=== PATIENT | male | born 1960 | race Caucasian/White ===

== ENCOUNTER 2018-10-08 15:32 | Emergency (ER) | payer OTHER ==
[~2018-10-08] VITALS: Ht 180.3 cm; Wt 86.2 kg
[2018-10-08 16:14] LABS: BASOPHILS ABSOLUTE AUTO 0.14 K/mm3 (0.00-0.23); BASOPHILS PERCENT AUTO 3 % (0-2); EOSINOPHILS ABSOLUTE AUTO 0.14 K/mm3 (0.00-0.68); EOSINOPHILS PERCENT AUTO 3 % (0-6); Hematocrit 42.1 % (37.0-53.0); Hemoglobin 13.9 g/dL (13.5-17.5); IMMATURE GRAN ABSOLUTE AUTO 0.02 K/mm3 (0.00-0.10); IMMATURE GRAN PERCENT AUTO 0 % (0-1); LYMPHOCYTES ABSOLUTE AUTO 1.28 K/mm3 (0.84-5.20); LYMPHOCYTES PERCENT AUTO 27 % (21-46); MONOCYTES ABSOLUTE AUTO 0.69 K/mm3 (0.16-1.47); MONOCYTES PERCENT AUTO 14 % (4-13); Mean Corpuscular HGB 32.9 pg (26.0-34.0); Mean Corpuscular Volume 100 fL (80-100); Mean Platelet Volume 9.1 fL (9.1-12.4); NEUTROPHILS ABSOLUTE AUTO 2.53 K/mm3 (1.96-9.15); NEUTROPHILS PERCENT AUTO 53 % (41-73); Platelet Count 146 K/mm3 (150-400); RDW Coefficient Variation 15.4 % (11.7-14.2); RDW Standard Deviation 56.8 fL (35.1-46.3); Red Blood Cell Count 4.22 M/mm3 (4.30-5.90)
[2018-10-08 16:35] LABS: Troponin I <0.015 ng/mL (0.000-0.040)
[2018-10-08 16:38] LABS: Alanine Aminotransfer (ALT/SGP 19 U/L (12-78); Albumin, Blood 3.6 g/dL (3.4-5.0); Albumin/Globulin Ratio 1.1 (0.8-1.8); Alk Phos 105 U/L (50-136); Anion Gap 10 mmol/L (6-16); Aspartate Aminotrans (AST/SGOT 56 U/L (12-37); Bilirubin, Total 0.8 mg/dL (0.1-1.0); Blood Urea Nitrogen 9 mg/dL (8-24); Bun/Creatinine Ratio 14.1 (12.0-20.0); CO2, Blood 25 mmol/L (21-32); Calcium, Blood 7.9 mg/dL (8.5-10.1); Chloride, Blood 109 mmol/L (98-108); Creatinine, Blood 0.64 mg/dL (0.60-1.20); Globulin, Blood 3.3 g/dL (2.2-4.0); Glomerular Filtration Rate >60 (60-); Glucose, Blood 99 mg/dL (70-99); Potassium, Blood 3.8 mmol/L (3.5-5.5); Sodium, Blood 144 mmol/L (136-145); Total Protein, Blood 6.9 g/dL (6.4-8.2)
[2018-10-08 16:40] LABS: Ethanol (Alcohol), Blood, Med 476 mg/dL
== END 2018-10-08 18:28 | disposition home or self-care (01) ==
LOC: ER 15:32
PROVIDERS: Emergency Medicine
DX: S01.01XA Laceration without foreign body of scalp, initial encounter (principal); F10.129 Alcohol abuse with intoxication, unspecified; Y90.8 Blood alcohol level of 240 mg/100 ml or more; Z23 Encounter for immunization; M79.604 Pain in right leg; G89.29 Other chronic pain; W18.30XA Fall on same level, unspecified, initial encounter; F17.200 Nicotine dependence, unspecified, uncomplicated
CPT/HCPCS: 12002; 36415; 70450; 71046; 72100; 73502; 73560-RT; 80053; 83880; 84484; 85025; 93005; 93010; 99284-25; G0480

== ENCOUNTER 2021-01-09 18:13 | Emergency (ER) | payer OTHER ==
[~2021-01-09] VITALS: Ht 182.9 cm; Wt 88.5 kg
== END 2021-01-09 19:35 | disposition home or self-care (01) ==
LOC: ER 18:13
DX: S60.511A Abrasion of right hand, initial encounter (principal); F10.129 Alcohol abuse with intoxication, unspecified; X50.1XXA Overexertion from prolonged static or awkward postures, initial encounter
CPT/HCPCS: 99283

== ENCOUNTER → 2021-02-09 | Outpatient (CLI) | payer OTHER | LOC: LAB EV 17:14 → LAB SHORT 17:14 | DX: L03.119 Cellulitis of unspecified part of limb (principal) | CPT/HCPCS: 87070; 87205 ==

== ENCOUNTER 2021-02-21 16:14 | Observation (INO) | payer OTHER ==
[~2021-02-21] VITALS: Ht 182.9 cm; Wt 103.9 kg
[2021-02-21 16:47] LABS: BASOPHILS ABSOLUTE AUTO 0.01 K/mm3 (0.00-0.23); BASOPHILS PERCENT AUTO 0 % (0-2); EOSINOPHILS ABSOLUTE AUTO 0.19 K/mm3 (0.00-0.68); EOSINOPHILS PERCENT AUTO 8 % (0-6); Hematocrit 44.3 % (37.0-53.0); Hemoglobin 15.3 g/dL (13.5-17.5); IMMATURE GRAN ABSOLUTE AUTO 0.01 K/mm3 (0.00-0.10); IMMATURE GRAN PERCENT AUTO 0 % (0-1); LYMPHOCYTES ABSOLUTE AUTO 0.61 K/mm3 (0.84-5.20); LYMPHOCYTES PERCENT AUTO 25 % (21-46); MONOCYTES PERCENT AUTO 12 % (4-13); Mean Corpuscular HGB 32.6 pg (26.0-34.0); Mean Corpuscular HGB Conc 34.5 g/dL (31.5-36.5); Mean Corpuscular Volume 95 fL (80-100); Mean Platelet Volume 9.7 fL (9.1-12.4); NEUTROPHILS ABSOLUTE AUTO 1.36 K/mm3 (1.96-9.15); NEUTROPHILS PERCENT AUTO 55 % (41-73); Platelet Count 57 K/mm3 (150-400); RDW Coefficient Variation 14.6 % (11.7-14.2); Red Blood Cell Count 4.69 M/mm3 (4.30-5.90); White Blood Cell Count 2.48 K/mm3 (4.00-11.30)
[2021-02-21 17:03] LABS: Alanine Aminotransfer (ALT/SGP 25 U/L (12-78); Albumin, Blood 3.4 g/dL (3.4-5.0); Albumin/Globulin Ratio 0.8 (0.8-1.8); Alk Phos 112 U/L (50-136); Anion Gap 9 mmol/L (6-16); Aspartate Aminotrans (AST/SGOT 68 U/L (12-37); Bilirubin, Total 0.4 mg/dL (0.1-1.0); Blood Urea Nitrogen 5 mg/dL (8-24); Bun/Creatinine Ratio 5.7 (12.0-20.0); CO2, Blood 23 mmol/L (21-32); Calcium, Blood 8.2 mg/dL (8.5-10.1); Chloride, Blood 107 mmol/L (98-108); Creatinine, Blood 0.88 mg/dL (0.60-1.20); Glomerular Filtration Rate >60 (60-); Glucose, Blood 132 mg/dL (70-99); Potassium, Blood 4.2 mmol/L (3.5-5.5); Sodium, Blood 139 mmol/L (136-145); Total Protein, Blood 7.4 g/dL (6.4-8.2)
[2021-02-21 17:06] LABS: Ethanol (Alcohol), Blood, Med 453 mg/dL
[2021-02-21 17:44] LABS: SARS-Cov-2 (COVID-19) PCR, MMC NEGATIVE (NEGATIVE)
[2021-02-21 18:31] LABS: Source, Urine Clean Catch
[2021-02-21 18:35] LABS: Appearance, Urine Clear (Clear); Bilirubin, Urine Neg (Neg); Blood, Urine 1+ (Neg); Color, Urine Yellow (P-Yellow); Glucose Qualitative, Urine Neg (Neg); Ketones, Urine Neg (Neg); Leukocyte Esterase, Urine Neg (Neg); Nitrite, Urine Neg (Neg); Protein, Urine 2+ (Neg); Specific Gravity, Urine 1.015 (1.003-1.022); Urobilinogen, Urine NORM (Normal)
[2021-02-21 18:50] LABS: U Amphetamine Screen Not Detected; U Barbituate Screen Not Detected; U Benzodiazapine Screen Not Detected; U Buprenorphine Screen Not Detected; U Cannabinoids Screen Not Detected; U Cocaine Screen Not Detected; U Methadone Screen Not Detected; U Methamphetamine Screen Not Detected; U Opiates Screen Not Detected; U Oxycodone Screen Not Detected; U Phencyclidine Screen Not Detected; U Propoxyphene Screen Not Detected
[2021-02-21 19:00] LABS: Bacteria Rare /hpf; Red Blood Cells, Urine Rare /hpf (0-2); Squamous Epithelial Cells Rare /hpf (Few); White Blood Cells, Urine Not Seen /hpf (0-5)
== END 2021-02-21 19:59 | disposition home or self-care (01) ==
LOC: ER 16:14 → EOR 16:15
PROVIDERS: Emergency Medicine; ADMIT Emergency Medicine
DX: F10.121 Alcohol abuse with intoxication delirium (principal); F32.9 Major depressive disorder, single episode, unspecified; Z20.822 Contact with and (suspected) exposure to COVID-19; Y90.8 Blood alcohol level of 240 mg/100 ml or more; Z87.820 Personal history of traumatic brain injury
CPT/HCPCS: 36415; 80053; 81001; 85025; 93005; 93010; 99285-25; G0378; G0480; U0004

== ENCOUNTER 2021-03-14 19:24 | Emergency (ER) | payer OTHER ==
[~2021-03-14] VITALS: Ht 182.9 cm; Wt 104.3 kg
== END 2021-03-14 20:10 | disposition home or self-care (01) ==
LOC: ER 19:24
DX: Z53.21 Procedure and treatment not carried out due to patient leaving prior to being seen by health care provider (principal)

== ENCOUNTER 2022-03-23 14:53 | Emergency (ER) | payer OTHER ==
[~2022-03-23] VITALS: Ht 180.3 cm; Wt 95.2 kg
[2022-03-23 15:20] LABS: BASOPHILS ABSOLUTE AUTO 0.05 K/mm3 (0.00-0.23); BASOPHILS PERCENT AUTO 1 % (0-2); EOSINOPHILS ABSOLUTE AUTO 0.07 K/mm3 (0.00-0.68); EOSINOPHILS PERCENT AUTO 1 % (0-6); Hematocrit 36.3 % (37.0-53.0); Hemoglobin 12.1 g/dL (13.5-17.5); IMMATURE GRAN ABSOLUTE AUTO 0.03 K/mm3 (0.00-0.10); IMMATURE GRAN PERCENT AUTO 1 % (0-1); LYMPHOCYTES ABSOLUTE AUTO 1.11 K/mm3 (0.84-5.20); LYMPHOCYTES PERCENT AUTO 17 % (21-46); MONOCYTES PERCENT AUTO 12 % (4-13); Mean Corpuscular HGB 33.5 pg (26.0-34.0); Mean Corpuscular HGB Conc 33.3 g/dL (31.5-36.5); Mean Corpuscular Volume 101 fL (80-100); Mean Platelet Volume 9.7 fL (9.1-12.4); NEUTROPHILS ABSOLUTE AUTO 4.59 K/mm3 (1.96-9.15); NEUTROPHILS PERCENT AUTO 69 % (41-73); Platelet Count 245 K/mm3 (150-400); RDW Coefficient Variation 12.9 % (11.7-14.2); RDW Standard Deviation 47.8 fL (35.1-46.3); Red Blood Cell Count 3.61 M/mm3 (4.30-5.90); White Blood Cell Count 6.65 K/mm3 (4.00-11.30)
[2022-03-23 15:40] LABS: Albumin, Blood 2.7 g/dL (3.4-5.0); Albumin/Globulin Ratio 0.8 (0.8-1.8); Bilirubin, Total 0.7 mg/dL (0.1-1.0); Bun/Creatinine Ratio 18.8 (12.0-20.0); Calcium, Blood 7.8 mg/dL (8.5-10.1); Creatinine, Blood 0.53 mg/dL (0.60-1.20); Globulin, Blood 3.2 g/dL (2.2-4.0); Potassium, Blood 3.1 mmol/L (3.5-5.5); Total Protein, Blood 5.9 g/dL (6.4-8.2)
[2022-03-23 16:47] LABS: U Amphetamine Screen Not Detected; U Barbituate Screen Not Detected; U Benzodiazapine Screen Not Detected; U Buprenorphine Screen Not Detected; U Cannabinoids Screen Not Detected; U Cocaine Screen Not Detected; U Methadone Screen Not Detected; U Methamphetamine Screen Not Detected; U Opiates Screen Not Detected; U Oxycodone Screen Not Detected; U Phencyclidine Screen Not Detected; U Propoxyphene Screen Not Detected
== END 2022-03-23 18:24 | disposition home or self-care (01) ==
LOC: ER 14:53
PROVIDERS: Emergency Medicine
DX: R41.0 Disorientation, unspecified (principal); F10.129 Alcohol abuse with intoxication, unspecified; F17.210 Nicotine dependence, cigarettes, uncomplicated; Y90.1 Blood alcohol level of 20-39 mg/100 ml
CPT/HCPCS: 70450; 80053; 82947; 85025; 93005; 93010; 99285-25; G0480

== ENCOUNTER 2023-01-13 14:42 | Emergency (ER) | payer OTHER ==
[~2023-01-13] VITALS: Ht 182.9 cm; Wt 83.9 kg
[2023-01-13 15:20] LABS: BASOPHILS ABSOLUTE AUTO 0.02 K/mm3 (0.00-0.23); BASOPHILS PERCENT AUTO 0 % (0-2); EOSINOPHILS ABSOLUTE AUTO 0.06 K/mm3 (0.00-0.68); EOSINOPHILS PERCENT AUTO 1 % (0-6); Hematocrit 36.6 % (37.0-53.0); Hemoglobin 13.2 g/dL (13.5-17.5); IMMATURE GRAN ABSOLUTE AUTO 0.04 K/mm3 (0.00-0.10); IMMATURE GRAN PERCENT AUTO 1 % (0-1); LYMPHOCYTES ABSOLUTE AUTO 0.62 K/mm3 (0.84-5.20); LYMPHOCYTES PERCENT AUTO 12 % (21-46); MONOCYTES ABSOLUTE AUTO 0.39 K/mm3 (0.16-1.47); MONOCYTES PERCENT AUTO 8 % (4-13); Mean Corpuscular HGB 31.5 pg (26.0-34.0); Mean Corpuscular HGB Conc 36.1 g/dL (31.5-36.5); Mean Corpuscular Volume 87 fL (80-100); Mean Platelet Volume 9.5 fL (9.1-12.4); NEUTROPHILS ABSOLUTE AUTO 3.99 K/mm3 (1.96-9.15); NEUTROPHILS PERCENT AUTO 78 % (41-73); Platelet Count 294 K/mm3 (150-400); RDW Coefficient Variation 13.2 % (11.7-14.2); RDW Standard Deviation 42.3 fL (35.1-46.3); Red Blood Cell Count 4.19 M/mm3 (4.30-5.90); White Blood Cell Count 5.12 K/mm3 (4.00-11.30)
[2023-01-13 15:45] LABS: Albumin, Blood 2.7 g/dL (3.4-5.0); Albumin/Globulin Ratio 0.7 (0.8-1.8); Bilirubin, Total 0.7 mg/dL (0.1-1.0); Bun/Creatinine Ratio 23.4 (12.0-20.0); Calcium, Blood 8.4 mg/dL (8.5-10.1); Creatinine, Blood 0.64 mg/dL (0.60-1.20); Globulin, Blood 3.9 g/dL (2.2-4.0); Potassium, Blood 4.1 mmol/L (3.5-5.5); Total Protein, Blood 6.6 g/dL (6.4-8.2)
[2023-01-13 17:11] VITALS: BP 141/90
== END 2023-01-13 18:59 | disposition home or self-care (01) ==
LOC: ER 14:42
PROVIDERS: Emergency Medicine
DX: M79.89 Other specified soft tissue disorders (principal); E87.1 Hypo-osmolality and hyponatremia; F17.210 Nicotine dependence, cigarettes, uncomplicated; Z87.820 Personal history of traumatic brain injury
CPT/HCPCS: 36415; 71045; 80053; 83880; 85025; 93005; 93010; 99284-25

== ENCOUNTER 2023-01-17 12:33 | Inpatient (IN) | payer OTHER ==
[~2023-01-17] VITALS: Ht 182.9 cm; Wt 90.2 kg
[2023-01-17 13:05] LABS: Calcium, Ionized (POC) 1.06 mmol/L (1.10-1.46); Chloride (POC) 87 mmol/L (98-108); Creatinine (POC) 0.5 mg/dL (0.8-1.3); Glucose (ISTAT POC) 131 mg/dL (70-99); Potassium (POC) 4.5 mmol/L (3.5-5.5); Sodium (POC) 120 mmol/L (135-148); Total CO2 (POC) 22 mmol/L (21-32)
[2023-01-17 13:21] LABS: BASOPHILS ABSOLUTE AUTO 0.03 K/mm3 (0.00-0.23); BASOPHILS PERCENT AUTO 0 % (0-2); EOSINOPHILS PERCENT AUTO 0 % (0-6); Hematocrit 38.2 % (37.0-53.0); Hemoglobin 13.5 g/dL (13.5-17.5); IMMATURE GRAN ABSOLUTE AUTO 0.14 K/mm3 (0.00-0.10); IMMATURE GRAN PERCENT AUTO 1 % (0-1); LYMPHOCYTES PERCENT AUTO 4 % (21-46); MONOCYTES ABSOLUTE AUTO 0.64 K/mm3 (0.16-1.47); MONOCYTES PERCENT AUTO 6 % (4-13); Mean Corpuscular HGB 30.8 pg (26.0-34.0); Mean Corpuscular HGB Conc 35.3 g/dL (31.5-36.5); Mean Corpuscular Volume 87 fL (80-100); Mean Platelet Volume 9.4 fL (9.1-12.4); NEUTROPHILS ABSOLUTE AUTO 10.06 K/mm3 (1.96-9.15); NEUTROPHILS PERCENT AUTO 89 % (41-73); Platelet Count 296 K/mm3 (150-400); RDW Standard Deviation 41.6 fL (35.1-46.3); Red Blood Cell Count 4.38 M/mm3 (4.30-5.90); White Blood Cell Count 11.37 K/mm3 (4.00-11.30)
[2023-01-17 13:36] LABS: Magnesium, Blood 1.7 mg/dL (1.6-2.4)
[2023-01-17 13:57] LABS: Alanine Aminotransfer (ALT/SGP 48 U/L (12-78); Albumin, Blood 2.2 g/dL (3.4-5.0); Albumin/Globulin Ratio 0.5 (0.8-1.8); Alk Phos 82 U/L (50-136); Anion Gap 7 mmol/L (6-16); Aspartate Aminotrans (AST/SGOT 90 U/L (12-37); Bilirubin, Total 1.1 mg/dL (0.1-1.0); Blood Urea Nitrogen 12 mg/dL (8-24); Bun/Creatinine Ratio 20.1 (12.0-20.0); CHOL/HDL RATIO Unable to Calculate; CO2, Blood 22 mmol/L (21-32); Calcium, Blood 8.4 mg/dL (8.5-10.1); Chloride, Blood 90 mmol/L (98-108); Cholesterol <50 mg/dL (50-200); Globulin, Blood 4.2 g/dL (2.2-4.0); Glomerular Filtration Rate 109 (60-); Glucose, Blood 140 mg/dL (70-99); HDL Cholesterol 10 mg/dL (>39); LDL/HDL RATIO Unable to Calculate; Low Density Lipoprotein Chol Unable to Calculate mg/dL (0-110); Potassium, Blood 4.6 mmol/L (3.5-5.5); Sodium, Blood 119 mmol/L (136-145); Total Protein, Blood 6.4 g/dL (6.4-8.2); Triglycerides 74 mg/dL (30-160); Very Low Density Lipoprot Chol 14 mg/dL (6-32)
[2023-01-17 15:23] LABS: Adenovirus Not Detected (NOT DETECT); Bordetella pertussis Not Detected (NOT DETECT); Chlamydophila pneumoniae Not Detected (NOT DETECT); Coronavirus 229E Not Detected (NOT DETECT); Coronavirus HKU1 Not Detected (NOT DETECT); Coronavirus NL63 Not Detected (NOT DETECT); Coronavirus OC43 Not Detected (NOT DETECT); Human Metapneumovirus Not Detected (NOT DETECT); Human Rhinovirus/Enterovirus Not Detected (NOT DETECT); Influenza A/2009-H1 Not Detected (NOT DETECT); Influenza A/H1 Not Detected (NOT DETECT); Influenza A/H3 Not Detected (NOT DETECT); Influenza B Not Detected (NOT DETECT); Mycoplasma pneumoniae Not Detected (NOT DETECT); Parainfluenza Virus 1 Not Detected (NOT DETECT); Parainfluenza Virus 2 Not Detected (NOT DETECT); Parainfluenza Virus 3 Not Detected (NOT DETECT); Parainfluenza Virus 4 Not Detected (NOT DETECT); Respiratory Syncytial Virus Not Detected (NOT DETECT); SARS-Cov-2 (COVID-19), BioFire Not Detected (NOT DETECT)
[2023-01-17 16:45] LABS: Calcium, Blood 8.4 mg/dL (8.5-10.1); Creatinine, Blood 0.59 mg/dL (0.60-1.20); Potassium, Blood 4.4 mmol/L (3.5-5.5)
[2023-01-17 16:56] LABS: Source, Urine Clean Catch
[2023-01-17 17:02] LABS: Appearance, Urine Hazy (Clear); Bilirubin, Urine Neg (Neg); Blood, Urine 1+ (Neg); Color, Urine Yellow (P-Yellow); Glucose Qualitative, Urine Neg (Neg); Ketones, Urine Neg (Neg); Leukocyte Esterase, Urine 2+ (Neg); Nitrite, Urine Neg (Neg); Protein, Urine 1+ (Neg); Specific Gravity, Urine 1.015 (1.003-1.022); Urobilinogen, Urine 1+ (Normal)
[2023-01-17 17:09] LABS: Bacteria Many /hpf; Red Blood Cells, Urine 0-2 /hpf (0-2); Squamous Epithelial Cells Rare /hpf (Few)
[2023-01-17 18:57] VITALS: BP 131/86
[2023-01-17 20:02] LABS: Bun/Creatinine Ratio 24.6 (12.0-20.0); Calcium, Blood 8.5 mg/dL (8.5-10.1); Creatinine, Blood 0.53 mg/dL (0.60-1.20); Potassium, Blood 4.2 mmol/L (3.5-5.5)
[2023-01-17 20:49] VITALS: BP 122/81
[2023-01-18 00:14] VITALS: BP 126/83
[2023-01-18 00:58] LABS: Bun/Creatinine Ratio 26.3 (12.0-20.0); Calcium, Blood 8.4 mg/dL (8.5-10.1); Creatinine, Blood 0.49 mg/dL (0.60-1.20); Potassium, Blood 4.2 mmol/L (3.5-5.5)
[2023-01-18 05:05] VITALS: BP 125/86
[2023-01-18 05:06] LABS: BASOPHILS ABSOLUTE AUTO 0.03 K/mm3 (0.00-0.23); BASOPHILS PERCENT AUTO 0 % (0-2); EOSINOPHILS ABSOLUTE AUTO 0.02 K/mm3 (0.00-0.68); EOSINOPHILS PERCENT AUTO 0 % (0-6); Hematocrit 38.5 % (37.0-53.0); Hemoglobin 13.4 g/dL (13.5-17.5); IMMATURE GRAN ABSOLUTE AUTO 0.14 K/mm3 (0.00-0.10); IMMATURE GRAN PERCENT AUTO 2 % (0-1); LYMPHOCYTES ABSOLUTE AUTO 0.55 K/mm3 (0.84-5.20); LYMPHOCYTES PERCENT AUTO 6 % (21-46); MONOCYTES ABSOLUTE AUTO 0.46 K/mm3 (0.16-1.47); MONOCYTES PERCENT AUTO 5 % (4-13); Mean Corpuscular HGB 30.5 pg (26.0-34.0); Mean Corpuscular HGB Conc 34.8 g/dL (31.5-36.5); Mean Corpuscular Volume 88 fL (80-100); Mean Platelet Volume 8.9 fL (9.1-12.4); NEUTROPHILS ABSOLUTE AUTO 7.43 K/mm3 (1.96-9.15); NEUTROPHILS PERCENT AUTO 86 % (41-73); Platelet Count 305 K/mm3 (150-400); RDW Coefficient Variation 12.8 % (11.7-14.2); RDW Standard Deviation 41.7 fL (35.1-46.3); White Blood Cell Count 8.63 K/mm3 (4.00-11.30)
[2023-01-18 05:43] LABS: Albumin, Blood 2.1 g/dL (3.4-5.0); Albumin/Globulin Ratio 0.6 (0.8-1.8); Bun/Creatinine Ratio 24.1 (12.0-20.0); Calcium, Blood 8.5 mg/dL (8.5-10.1); Creatinine, Blood 0.58 mg/dL (0.60-1.20); Globulin, Blood 3.7 g/dL (2.2-4.0); Potassium, Blood 4.4 mmol/L (3.5-5.5); Total Protein, Blood 5.8 g/dL (6.4-8.2)
--- NOTE | 2023-01-18 06:00 | NUR ---
SHIFT SUMMARY ASSUMED CARE OF PT AT 1900. PT IS A/OX3-4. PT IS FORGETFUL. FOR EXAMPLE, PT CANT REMEMBER WHY HIS CARGIVER IS NOT IN THE ROOM BUT KNOWS THAT HE IS IN THE HOSPITAL. HEART SOUNDS REGULAR. LUNG SOUNDS CORSE AT BASES. PT HAD WET NON PRODUCTIVE COUGH. PT C/O THROAT PAIN, MEDICATED PER EMAR. PT HAD CONDOM CATH T/O THE NOC. PT WOULD FORGET HE HAD IT AND ATTEMPT TO URINATE IN A CUP. PT HAS ARTHRITIC PAIN, MEDICATED PER EMAR. PT DID NOT SLEP WELL DURING THE NOC.
[2023-01-18 08:00] VITALS: BP 121/81
[2023-01-18 12:30] VITALS: BP 121/88
--- NOTE | 2023-01-18 16:00 | NUR ---
ASSUMPTION OF CARE AND TRANSFER OF CARE NOTE THIS RN ASSUMED CARE OF PT AT 0715, REPORT FROM SANDY VANN. PT AWAKE IN ROOM; PT A&O X 2. ORIENTED TO SELF, PERSON, FAMILY. ABLE TO IDENTIFY HE WAS IN [place] BUT UNABLE TO STATE HE WAS IN THE HOSPITAL. PT DIFFICULT TO REORIENT D/T HX OF TBI AND DEMENTIA. PT PLEASANT BUT FORGETFUL OFTEN NEEDING REMINDERS AND REORIENTATION. VSS. PT ON RA, DYSPNEA NOTED W/EXERTION. PT LUNG SOUNDS COURSE AND WHEEZING NOTED. CONDOM CATHETER IN PLACE, DRAINING LILLY URINE. FAMILY IN TO SEE PT. CIWA SCORES RANING 5 - 7. PT COMPLAINING OF PAIN 5/10 "ALL OVER", STATES IS NEW ONSET. MEDICATION PER EMAR. AROUND 1400 PT NOTICEABLY MORE RESTLESS, AGITATED AND A LITTLE MORE CONFUSED THAN EARLIER. THIS RN TRANSFERRED CARE TO VIRA Bowen RN AND RESOURCE TEACHER. REPORT GIVEN. FAMILY AT BEDSIDE.
--- NOTE | 2023-01-18 16:05 | NUR ---
ASSUMED CARE OF PATIENT PATIENT VERY RESTLESS IN CHAIR, CONTINUOUSLY ASKING FOR HIS ELECTRONIC W/C PATIENT PRESUMABLY HAS AT HOME. REMINDED PATIENT HE IS IN HOSPITAL, ATTEMPTED TO REASSURE BUT PATIENT VERY FIXATED ON NEEDING WHEELCHAIR. PLAN TO REASSES CIWA & MEDICATE PER EMAR NEEDED PER CIWA SCALE.
[2023-01-18 16:54] VITALS: BP 119/88
--- NOTE | 2023-01-18 18:30 | NUR ---
NO ACUTE CHANGES SINCE ASSUMPTION OF CARE. PATIENT HAS BEEN RESTING PEACEFULLY IN CHAIR SINCE ATIVAN GIVEN PER EMAR. CALL LIGHT IN REACH.
[2023-01-18 21:25] VITALS: BP 102/73
[2023-01-19 04:42] VITALS: BP 124/88
[2023-01-19 05:14] LABS: BASOPHILS ABSOLUTE AUTO 0.03 K/mm3 (0.00-0.23); BASOPHILS PERCENT AUTO 1 % (0-2); EOSINOPHILS ABSOLUTE AUTO 0.18 K/mm3 (0.00-0.68); EOSINOPHILS PERCENT AUTO 3 % (0-6); Hematocrit 36.3 % (37.0-53.0); IMMATURE GRAN ABSOLUTE AUTO 0.22 K/mm3 (0.00-0.10); IMMATURE GRAN PERCENT AUTO 4 % (0-1); LYMPHOCYTES ABSOLUTE AUTO 0.76 K/mm3 (0.84-5.20); LYMPHOCYTES PERCENT AUTO 14 % (21-46); MONOCYTES ABSOLUTE AUTO 0.37 K/mm3 (0.16-1.47); MONOCYTES PERCENT AUTO 7 % (4-13); Mean Corpuscular HGB 31.5 pg (26.0-34.0); Mean Corpuscular HGB Conc 35.8 g/dL (31.5-36.5); Mean Corpuscular Volume 88 fL (80-100); Mean Platelet Volume 9.2 fL (9.1-12.4); NEUTROPHILS ABSOLUTE AUTO 3.79 K/mm3 (1.96-9.15); NEUTROPHILS PERCENT AUTO 71 % (41-73); Platelet Count 323 K/mm3 (150-400); RDW Coefficient Variation 13.1 % (11.7-14.2); RDW Standard Deviation 41.7 fL (35.1-46.3); Red Blood Cell Count 4.13 M/mm3 (4.30-5.90); White Blood Cell Count 5.35 K/mm3 (4.00-11.30)
[2023-01-19 05:36] LABS: Albumin, Blood 1.9 g/dL (3.4-5.0); Albumin/Globulin Ratio 0.5 (0.8-1.8); Bilirubin, Total 0.8 mg/dL (0.1-1.0); Bun/Creatinine Ratio 29.9 (12.0-20.0); Calcium, Blood 8.2 mg/dL (8.5-10.1); Creatinine, Blood 0.5 mg/dL (0.60-1.20); Globulin, Blood 3.7 g/dL (2.2-4.0); Potassium, Blood 4.2 mmol/L (3.5-5.5); Total Protein, Blood 5.6 g/dL (6.4-8.2)
--- NOTE | 2023-01-19 06:27 | NUR ---
SHIFT SUMMARY ASSUMED CARE OF PT AT 1900. PT IS A/OX2. PT IS VERY PARANOID, SAYING STAFF KIDNAPPED HIM AND HE DOESNT TRUST ANYONE HERE. JUANFE MICHELLE WAS CALLED AND TALKED TO PT WITHOUT RESULTS. PT CIWAH WAS 11, GIVEN ATIVAN WITH WHICH PT FELL ASLEEP AND STAYED ASLEEP T/O THE NOC UNTIL THIS AM WHEN HE GOT HIS VITALS CHECKED AND LABS DRAWN. PT REMAINED SUSPICIOUS OF STAFF AND COMPLAINING ABOUT NOT HAVE PERSONAL WHEELCHAIR. PT NOT ORIENTED TO ANYTHING BUT SELF AND DIFFICULT TO REDIRECT. PT TEARING AT LINES AND NOT UNDERSTANDING WHY LINES NEEDS TO BE IN PLACE.
--- NOTE | 2023-01-19 07:36 | NUR ---
UPON ENTERING PATIENT ROOM TO INTRODUCE SELF, NOTED PATIENT HAD THE SALINE LOCK SITTING ON THE BEDSIDE TABLE AND EVIDENCE OF BLOOD OVER THE HAND AND THE RIGHT LEG. PT LYING ON HIS SIDE, SLEEPING.
[2023-01-19 08:48] VITALS: BP 135/88
--- NOTE | 2023-01-19 10:31 | NUR ---
SN FANI AND I ARE CARING FOR YOGESH TOGETHER, PLEASE SEE HER NOTES FOR FURTHER INFORMATION WE ARE CARING FOR HIM TOGETHER.
--- NOTE | 2023-01-19 12:13 | NUR ---
HAD PT TRY USING THE COMMODE, PT INSISTED TO USE THE BATHROOM. YAS RN, AND THIS STUDENT NURSE WALKED PT TO THE BATHROOM WITH A GAIT BELT. PT SAT ON THE TOILET AND DID NOT HAVE ANY OUTPUT. PT ASSISTED FROM BATHROOM TO THE CHAIR WITH OT AND THIS STUDENT NURSE WITH FWW AND GAIT BELT. THE PT TOLERATED THE AMBULATION WELL. HE FOLLOWED DIRECTIONS WHILE AMBULATING. EX-, MICHELLE, IS CURRENTLY IN THE ROOM VISITING WITH THE PATIENT. WILL CONTINUE TO MONITOR.
[2023-01-19 12:44] VITALS: BP 120/72
[2023-01-19 12:51] VITALS: BP 112/69
--- NOTE | 2023-01-19 13:37 | NUR ---
GEOFFREY, DENTAL HYGIENIST WAS CALLED TO ASSESS THE MOUTH SORE ON THE LEFT SIDE OF HIS TONGUE. THE AREA LOOKS LIKE AN ULCERATION, HE STATES THAT HE HAD BITTEN HIS TONGUE A COUPLE OF DAYS AGO. SEE GEOFFREY'S NOTES FOR EVALUATION AND RECOM- MENDATIONS FOR TREATMENT. HIS MENTATION HAS BEEN GOOD TODAY, HE HAS BEEN EN- GAGING AND IS REMEMBERING THE FACES OF HIS CAREGIVERS TODAY. HE HAS BEEN AC- CEPTING OF HIS CARE AND WORKING WITH EACH MODALITY TO GET BETTER TODAY. BOB HIS EX-, [facility] DID MENTION THAT SHE FELT OVERALL HE HAS IMPROVED MENTATION TODAY. HE DOES OCC SPILL OUT WITH RANDOM THINGS THAT HAVE NOTHING TO DO WITH ANYTHING THAT IS HAPPENING. HE HAS BEEN ABLE TO BE REDIRECTED.
--- NOTE | 2023-01-19 17:40 | NUR ---
WHEN CHECKING ON THE PATIENT AROUND 1630 HE WAS PEELING THE SKIN OFF OF HIS SCROTUM. HE WAS DESCRIBING HIS SCROTOM SORE AND ITCHING. ORANGE BARRIER CREAM APPLIED WITH HIS PERMISSION, STATING THAT IT IS HELPING. HE IS TRYING TO FEED HIMSELF SOME DINNER. STILL FOCUSING ON BEING ABLE TO GO OUTSIDE TO SMOKE, WAS ABLE TO GET SOME NICOTINE GUM FROM . HE WANTS TO GET A MOTORIZED SCOOTER TO MOVE ABOUT THE HOSPITAL, REDIRECTED. HE HAD CONTINUED TO REMOVE HIS TELEMETRY, ORDER FROM TO REMOVED IT HE HAS BEEN IN [place] WITHOUT ANY EVENTS.
--- NOTE | 2023-01-19 18:17 | NUR ---
SHIFT SUMMARY THE PT HAS HAS BEEN A&OX3 FOR THE DAY. HE WOULD OCCASIONALY SAY THINGS THAT DID NOT SHOW A CONCRETE THOUGHT PROCESS. FOR EXAMPLE, HE WOULD SAY "I JUST WATCHED THE PILLOW TAKE A BREATH" OR HE WOULD TALK ABOUT "THE INSTRUCTIONS BEING ON THE REFRIDGERATOR". THE PATIENT WAS DIRECTABLE ALL DAY AND WOULD FOLLOW VERBAL COMMANDS. THE PT AMBULATED WITH OT, PT, HIS NURSE, AND THIS STUDENT NURSE AT DIFFERENT TIMES TODAY. HE TOLERATED IT WELL, AND USED A FRONT WHEEL WALKER AND GAIT BELT. THE PT'S VITALS WERE STABLE TODAY. HIS TELE MONITOR WAS DC'D BY THE DOCTOR BECAUSE HE KEPT PULLING IT OFF AND HE WAS STABLE SO IT WAS DEEMED UNNECESSARY. THE PT DID NOT SHOW ANY SIGNS OF PARANOIA TODAY. WILL CONTINUE TO MONITOR UNTIL CARE IS TRANSITIONED TO NOC SHIFT.
[2023-01-19 20:35] VITALS: BP 115/85
--- NOTE | 2023-01-20 00:31 | NUR ---
Pt arrived to floor and was changed and given a snack, pt setting off bed alarm, and would stand to void with walker with one assist. pt just now got up set off alarm and was very paranoid and verbly agressive pt not oriented and having haluinations. pt given ativan.call light in reach bed alarm on.
[2023-01-20 05:53] LABS: BASOPHILS ABSOLUTE AUTO 0.04 K/mm3 (0.00-0.23); BASOPHILS PERCENT AUTO 1 % (0-2); EOSINOPHILS ABSOLUTE AUTO 0.12 K/mm3 (0.00-0.68); EOSINOPHILS PERCENT AUTO 3 % (0-6); Hematocrit 38.4 % (37.0-53.0); Hemoglobin 13.2 g/dL (13.5-17.5); IMMATURE GRAN PERCENT AUTO 4 % (0-1); LYMPHOCYTES ABSOLUTE AUTO 0.76 K/mm3 (0.84-5.20); LYMPHOCYTES PERCENT AUTO 16 % (21-46); MONOCYTES ABSOLUTE AUTO 0.34 K/mm3 (0.16-1.47); MONOCYTES PERCENT AUTO 7 % (4-13); Mean Corpuscular HGB Conc 34.4 g/dL (31.5-36.5); Mean Corpuscular Volume 90 fL (80-100); Mean Platelet Volume 9.2 fL (9.1-12.4); NEUTROPHILS ABSOLUTE AUTO 3.18 K/mm3 (1.96-9.15); NEUTROPHILS PERCENT AUTO 69 % (41-73); Platelet Count 322 K/mm3 (150-400); RDW Coefficient Variation 13.2 % (11.7-14.2); RDW Standard Deviation 43.6 fL (35.1-46.3); Red Blood Cell Count 4.26 M/mm3 (4.30-5.90); White Blood Cell Count 4.64 K/mm3 (4.00-11.30)
--- NOTE | 2023-01-20 06:30 | NUR ---
SHIFT SUMERY, PT CALM AND COOPERATIVE WHEN HE CAME UP, PT AND BEDDING WET AND PT AND BED CHANGED. PT GIVEN A SNACK , PILLOWS PLACED FOR COMFORT AND PREVENTION OF SKIN BREAKDOWN. PT HAD SET OFF ALARM DUE TO PT HAVING TO VOID, PT STOOD AT BED SIDE WITH WALKER AND 1 ASSIST. THE NEXT TIME PT GOT UP PT VERY PARANOID AND ANGERY , PT BEING VERBALY ABUSE AND STARTING TO ESCALAT IN BEHAVIORS. PT GIVEN ATIVAN AND THEN SLEPT TIL ABOUT 0500. PTS AND BED WET AGAIN AND PT VERY SLEEPY BUT NOT BEING AGRESSIVE. CALL LIGHT IN REACH BED ALARM ON.
[2023-01-20 06:34] LABS: Bun/Creatinine Ratio 22.5 (12.0-20.0); Calcium, Blood 8.2 mg/dL (8.5-10.1); Creatinine, Blood 0.53 mg/dL (0.60-1.20); Potassium, Blood 4.5 mmol/L (3.5-5.5)
[2023-01-20 07:47] VITALS: BP 121/73
[2023-01-20 15:46] VITALS: BP 112/76
--- NOTE | 2023-01-20 17:21 | NUR ---
END OF SHIFT SUMMARY: PATIENT REPORTED CHRONIC PAIN DURING THE SHIFT. MEDICATED MULTIPLES TIMES FOR PAIN. ASSISTED PATIENT WITH REPOSITION AND OBTAINED A RECLINER FOR THE ROOM. PATIENT DID NOT COMPLAIN OF NEW PAIN. PATIENT UP TO THE CHAIR AND BSC THROUGHOUT THE DAY. PATIENT DISPLAYS STML AND DELUSIONS. PATIENT IRRITABLE AND AGITATED AT TIMES, BUT GENERALLY REDIRECTABLE AND ACCEPTING OF CARE. PATIENT IS WEAK AND REQUIRED 2 STAFF FOR TRANSFERS AND HANDLING OF EQUIPMENT. PATIENT ATTEMPTED TO PULL HIS IV OUT MULTIPLE TIMES. PATIENT REDIRECTABLE, BUT HAD DELUSIONS ABOUT WHY IT WAS IN PLACE.
[2023-01-20 19:37] VITALS: BP 151/92
--- NOTE | 2023-01-20 22:27 | NUR ---
PT GIVEN ATIVAN, PT BECOMMING MORE AGITATED WANTING TO LEAVE, THINKING RECLINER WAS A MOTERIZED CHAIR. PT BECOMMING MORE PARANOID THINKING WE WERE UP TO SOME THING. PT HAD STTAED TO BECOME AGITATED EARLYER WHEN ANOTHER RN WAS HELPING PT AFTER PT HAD A BM AND NEEDED CLEANED UP. HE WAS STARTING TO BE SOME WHAT TREATENIG. BUT PT DEESCALATED AFTER HAVING SOME FOOD AND SITTING IN CHAIR FOR A LITTLE WHILE. PT NOW RESTING IN RECLINER AND APPEARS TO BE VERY COMFORTABLE. CALL LIGHT IN REACH CHAIR ALARM ON.
--- NOTE | 2023-01-21 04:50 | NUR ---
SHIFT SUMMERY. PT BECAME AGITATED AND PARANOID EARLY IN SHIFT WHEN PT NEEDED TO BE CLEANED UP AFTER BM, PT DID CALM DOWN FOR A WHILE AFTER A SNACK GIVEN AND PT SAT FOR A WHILE. PT THEN LATER BECAME MPR PARANOID AND WATED TO LEAVE THINKING THAT RECLINER WAS A MOTERIZED SCOOTER AND WAS WANTING TO LEAVE. PT GIVEN ATIVAN AND IS RESTING WELL. CALL LIGHT IN REACH CHAIR ALARM ON.
[2023-01-21 05:33] VITALS: BP 136/93
[2023-01-21 08:34] VITALS: BP 134/89
--- NOTE | 2023-01-21 11:01 | NUR ---
NO IV ACCESS, MD AND CHARGE NOTIFIED. STATED TO HOLD IV MEDICATIONS UNTIL SHE ROUNDED.
[2023-01-21 16:06] VITALS: BP 141/95
--- NOTE | 2023-01-21 16:40 | NUR ---
SHIFT SUMMARY: Pt remains calm and alert to self only this shift. No further s/sx of ETOH withdrawal. No PRN Ativan needed. Was able to be redirected and reassured. VSS 2 person ast with gait belt to bsc. Two loose stools today. MD aware, no further orders at this time. Incontinent of B&B at times. LSCTA, diminished on room air. IV meds changed to po, no IV access needed per MD. No further needs id or verbalized. Will continue to follow.
[2023-01-21 19:18] VITALS: BP 150/97
--- NOTE | 2023-01-22 03:49 | NUR ---
SHIFT SUMMERY. PT AND BEDDING CAHNGED SEVERAL TIMES WAS PT . PT VOIDING INTO CUPS SITTING ON HIS TABLE AND OCCASIONALY IN URINAL, HOWEVER PT USUALY SEEMS TO MISS WHAT HE IS TRYING TO VOID IN AND WETS HIS BEDDING AND HIS GOWN AND DEPENDS. EARLYER IN THE NIGHT PT BECOMMING ANXIOUS WANTING TO CALL XWIFE. HELPED PT CALL XWIFE AND ONLY 2 MIN LATER AFTER HANGING UP HE WANTED TO CALL HER AGAIN NOT REMEMBERING HE HAD JUST SPOKEN TO HER. PT GETTING VERY UPSET THINKING WE WERE TRYING TO KEEP HIM FROM TALKING TO HER. THINKING HE HAD ASKED AND NOT BEEN HELPED TO TALK TO HER. xWIFE AFTER SO MANY CALLS HAS BEEN KNOWN TO NOT ANSWER. CALL LIGHT IN REACH BED ALARM ON.
[2023-01-22 05:39] VITALS: BP 153/93
[2023-01-22 07:19] VITALS: BP 136/97
[2023-01-22 15:50] VITALS: BP 132/81
--- NOTE | 2023-01-22 17:45 | NUR ---
SHIFT SUMMARY- VSS. SLEEPY DURING START OF SHIFT, AROUSE STAE BY NOON. ON RA. CONFUSION AND AGITATED NOTED THROUGHTOUT SHIFT. MEDICATED PER EMAR. INCONTIENT. UP IN CHAIR MOST OF SHIFT. WILL CONTINUE TO MONITOR. CALL LIGHT IN REACH. CHAIR/BED ALARM ON FOR SAFETY.
[2023-01-23 04:43] LABS: BASOPHILS ABSOLUTE AUTO 0.03 K/mm3 (0.00-0.23); BASOPHILS PERCENT AUTO 1 % (0-2); EOSINOPHILS ABSOLUTE AUTO 0.11 K/mm3 (0.00-0.68); EOSINOPHILS PERCENT AUTO 2 % (0-6); Hematocrit 37.7 % (37.0-53.0); Hemoglobin 12.8 g/dL (13.5-17.5); IMMATURE GRAN ABSOLUTE AUTO 0.13 K/mm3 (0.00-0.10); IMMATURE GRAN PERCENT AUTO 2 % (0-1); LYMPHOCYTES ABSOLUTE AUTO 0.71 K/mm3 (0.84-5.20); LYMPHOCYTES PERCENT AUTO 13 % (21-46); MONOCYTES ABSOLUTE AUTO 0.32 K/mm3 (0.16-1.47); MONOCYTES PERCENT AUTO 6 % (4-13); Mean Corpuscular HGB 30.7 pg (26.0-34.0); Mean Corpuscular Volume 90 fL (80-100); Mean Platelet Volume 8.7 fL (9.1-12.4); NEUTROPHILS ABSOLUTE AUTO 4.33 K/mm3 (1.96-9.15); NEUTROPHILS PERCENT AUTO 77 % (41-73); Platelet Count 378 K/mm3 (150-400); RDW Coefficient Variation 13.4 % (11.7-14.2); RDW Standard Deviation 45.2 fL (35.1-46.3); Red Blood Cell Count 4.17 M/mm3 (4.30-5.90); White Blood Cell Count 5.63 K/mm3 (4.00-11.30)
[2023-01-23 05:02] LABS: Anion Gap 5 mmol/L (6-16); Blood Urea Nitrogen 12 mg/dL (8-24); Bun/Creatinine Ratio 21.3 (12.0-20.0); CO2, Blood 25 mmol/L (21-32); Calcium, Blood 8.7 mg/dL (8.5-10.1); Chloride, Blood 102 mmol/L (98-108); Creatinine, Blood 0.56 mg/dL (0.60-1.20); Glomerular Filtration Rate 111 (60-); Glucose, Blood 109 mg/dL (70-99); Magnesium, Blood 1.6 mg/dL (1.6-2.4); Phosphorus, Blood 4.9 mg/dL (2.5-4.9); Potassium, Blood 4.3 mmol/L (3.5-5.5); Sodium, Blood 132 mmol/L (136-145)
--- NOTE | 2023-01-23 05:15 | NUR ---
SHIFT SUMMARY 62 YR M ADMITTED ON 01/17/23 FOR AMS/TBI. FULL CODE. NO ACUTE CHANGES THIS SHIFT. PT IS CONFUSED AND STATED THAT HE DOES NOT KNOW WHERE HE IS. IT WAS EXPLAINED TO HIM WHERE HE IS AND WHY AND ALMOST IMMEDIATELY STATED AGAIN THAT HE DOESN'T KNOW WHERE HE IS. HE TRIES TO USE THE URINAL IN BED BUT HE MAKES A BIG MESS. AT ONE POINT HE URINATED ALL OVER THE FLOOR. THIS NURSE NOTED VERY LITTLE AGITATION FROM PT THIS SHIFT. HE HAS SLEPT OFF AND ON THROUGHOUT THE NIGHT. HE IS PLEASANT AND TRIES TO BE COOPERATIVE.
[2023-01-23 07:35] VITALS: BP 125/89
[2023-01-23] MEDS ORDERED: Acetaminophen325 M1 PO (12:03)
[2023-01-23] MEDS ORDERED: CEFD300 (12:04)
[2023-01-23] MEDS ORDERED: COLCHICINE0.6 MG PO (12:05)
[2023-01-23] MEDS ORDERED: LACT PO (12:06)
[2023-01-23] MEDS ORDERED: INDO50 (12:06)
[2023-01-23] MEDS ORDERED: OMEP20ER PO (12:08)
[2023-01-23] MEDS ORDERED: Nicoderm Cq1 EAC1 TOP (12:08)
[2023-01-23] MEDS ORDERED: QUET100 PO (12:09)
[2023-01-23] MEDS ORDERED: Seroquel Xr50 MG PO (12:10)
[2023-01-23] MEDS ORDERED: Hair, Skin & N1 EACH PO (12:11)
[2023-01-23] MEDS ORDERED: VISBIOME 112.51 EACH PO (12:53)
--- NOTE | 2023-01-23 14:12 | NUR ---
SHIFT SUMMARY- VSS. PT PLEASANT, EAGER TO D/C. CONDOM CATH APPLIED FOR SKIN INTEGRITY. PT TOLERATED WELL. FAMILY AT BEDSIDE. ON RA. UP IN CHAIR MOST OF SHIFT. CALL LIGHT IN REACH. CHAIR ALARM ON FOR SAFETY.
--- NOTE | 2023-01-23 14:14 | NUR ---
D/C PT D/C TO HOME WITH ALL BELONGINGS IN HAND. EDUCATION GIVEN ON NEW MEDICATIONS. FAMILY TO TRANSPORT TO HOME. WHEELCHAIR TRANSPORT GIVEN TO [facility].
== END 2023-01-23 14:10 | disposition home health service (06) | DRG 314 ==
LOC: ER 12:33 → ICUW 12:58 → ER 12:58 → MEDS 16:33 → PCU 16:33 → MEDS 01-19 22:04 → ENPENDDIS 01-23 11:28 → MEDS 01-23 14:10
PROVIDERS: Emergency Medicine; Family Medicine; Internal Medicine Cardiovascular Disease; ADMIT Internal Medicine
PROC: HZ2ZZZZ Detoxification Services for Substance Abuse Treatment (ICD-10-PCS; principal; 2023-01-17)
DX: I30.9 Acute pericarditis, unspecified (principal); G93.41 Metabolic encephalopathy; E87.1 Hypo-osmolality and hyponatremia; F10.239 Alcohol dependence with withdrawal, unspecified; Z20.822 Contact with and (suspected) exposure to COVID-19; F32.A Depression, unspecified; F17.210 Nicotine dependence, cigarettes, uncomplicated; F03.90 Unspecified dementia, unspecified severity, without behavioral disturbance, psychotic disturbance, mood disturbance, and anxiety; D69.6 Thrombocytopenia, unspecified; F43.10 Post-traumatic stress disorder, unspecified; Z87.820 Personal history of traumatic brain injury; Z98.890 Other specified postprocedural states
CPT/HCPCS: 0202U; 36415; 70450; 71045; 80047; 80048; 80053; 80061; 80069; 81001; 83735; 83930; 83935; 84295; 84300; 84484; 85014; 85025; 86850; 86900; 86901; 87077; 87086; 87186; 93005; 93010; 93306; 94640; 94664; 94760; 96374-59; 96375-59; 97110; 97112; 97116; 97129; 97162; 97166; 97530; 97535; 99285-25; A9270; J0696; J1650; J2060; J2597; J3411; J3475; J7030

== ENCOUNTER 2023-01-26 16:55 | Inpatient (IN) | payer OTHER ==
[~2023-01-26] VITALS: Ht 170.2 cm; Wt 74.8 kg
[~2023-01-26 16:55] MED LIST: Acetaminophen325 M1 PO; CEFD300 PO; COLCHICINE0.6 MG PO; Hair, Skin & N1 EACH PO; INDO50 PO; LACT PO; Nicoderm Cq1 EAC1 TOP; OMEP20ER PO; QUET100 PO; Seroquel Xr50 MG PO; VISBIOME 112.51 EACH PO
[2023-01-26 17:29] LABS: BASOPHILS ABSOLUTE AUTO 0.05 K/mm3 (0.00-0.23); BASOPHILS PERCENT AUTO 1 % (0-2); EOSINOPHILS ABSOLUTE AUTO 0.04 K/mm3 (0.00-0.68); EOSINOPHILS PERCENT AUTO 0 % (0-6); Hemoglobin 12.6 g/dL (13.5-17.5); IMMATURE GRAN ABSOLUTE AUTO 0.14 K/mm3 (0.00-0.10); IMMATURE GRAN PERCENT AUTO 1 % (0-1); LYMPHOCYTES ABSOLUTE AUTO 0.68 K/mm3 (0.84-5.20); LYMPHOCYTES PERCENT AUTO 7 % (21-46); MONOCYTES ABSOLUTE AUTO 0.43 K/mm3 (0.16-1.47); MONOCYTES PERCENT AUTO 4 % (4-13); Mean Corpuscular HGB 30.6 pg (26.0-34.0); Mean Corpuscular Volume 87 fL (80-100); Mean Platelet Volume 8.9 fL (9.1-12.4); NEUTROPHILS ABSOLUTE AUTO 8.41 K/mm3 (1.96-9.15); NEUTROPHILS PERCENT AUTO 86 % (41-73); Platelet Count 444 K/mm3 (150-400); RDW Standard Deviation 41.6 fL (35.1-46.3); Red Blood Cell Count 4.12 M/mm3 (4.30-5.90); White Blood Cell Count 9.75 K/mm3 (4.00-11.30)
[2023-01-26 18:28] LABS: Influenza A, PCR NEGATIVE (NEGATIVE); Influenza B, PCR NEGATIVE (NEGATIVE); Resp Syncytial Virus, PCR NEGATIVE (NEGATIVE); SARS-Cov-2 (COVID-19) PCR, MMC NEGATIVE (NEGATIVE)
[2023-01-26 18:52] LABS: Albumin, Blood 2.3 g/dL (3.4-5.0); Albumin/Globulin Ratio 0.6 (0.8-1.8); Bilirubin, Total 0.7 mg/dL (0.1-1.0); Bun/Creatinine Ratio 30.6 (12.0-20.0); C-REACTIVE PROTEIN, EXT RANGE 8.46 mg/dL (0.000-0.300); Calcium, Blood 8.3 mg/dL (8.5-10.1); Creatinine, Blood 0.46 mg/dL (0.60-1.20); Total Protein, Blood 6.3 g/dL (6.4-8.2)
[2023-01-26 19:08] LABS: Source, Urine Clean Catch
[2023-01-26 19:10] LABS: Appearance, Urine Clear (Clear); Bilirubin, Urine Neg (Neg); Blood, Urine Neg (Neg); Color, Urine Yellow (P-Yellow); Glucose Qualitative, Urine Neg (Neg); Ketones, Urine 1+ (Neg); Leukocyte Esterase, Urine Neg (Neg); Nitrite, Urine Neg (Neg); Protein, Urine 1+ (Neg); Urobilinogen, Urine NORM (Normal)
[2023-01-26 19:26] LABS: Thyroid Stimulating Hormone 1.91 uIU/mL (0.360-4.800)
[2023-01-26 21:36] VITALS: BP 113/74
[2023-01-27 02:54] VITALS: BP 128/77
[2023-01-27 06:10] LABS: Hematocrit 33.9 % (37.0-53.0); Hemoglobin 11.9 g/dL (13.5-17.5); Mean Corpuscular HGB 30.7 pg (26.0-34.0); Mean Corpuscular HGB Conc 35.1 g/dL (31.5-36.5); Mean Corpuscular Volume 88 fL (80-100); Mean Platelet Volume 9.1 fL (9.1-12.4); Platelet Count 337 K/mm3 (150-400); RDW Coefficient Variation 13.1 % (11.7-14.2); RDW Standard Deviation 41.5 fL (35.1-46.3); Red Blood Cell Count 3.87 M/mm3 (4.30-5.90); White Blood Cell Count 7.62 K/mm3 (4.00-11.30)
[2023-01-27 07:51] VITALS: BP 137/80
[2023-01-27 15:14] VITALS: BP 105/64
--- NOTE | 2023-01-27 19:42 | NUR ---
SHIFT SUMMARY PT UNABLE TO VERBALIZE CLEARLY, DOES FOLLOW DIRECTIONS AND IS COOPERATIVE. IS ABLE TO SWALLOW MEDS WHOLE WITH APPLESAUCE. VSS. IS A FEEDER. PT STARTED SHIFT UNABLE TO REMAIN AWAKE TO SAFELY SWALLOW MEDS. TOWARDS THE END OF SHIFT PT BEGAN FORMNG SENTENCES AND MAKING HIMSELF & HIS NEEDS KNOWN. IMPULSIVELY GOT OUT OF BED TO URINATE. 2 RN'S ANSWERED BED ALARM AND ASSISTED PT TO URINATE AND THEN BACK TO BED. PLAN IS LIKELY FOR PLACEMENT UPON DC.
[2023-01-27 20:09] VITALS: BP 104/62
[2023-01-28 05:30] VITALS: BP 120/78
[2023-01-28 05:39] LABS: BASOPHILS ABSOLUTE AUTO 0.04 K/mm3 (0.00-0.23); BASOPHILS PERCENT AUTO 1 % (0-2); EOSINOPHILS ABSOLUTE AUTO 0.05 K/mm3 (0.00-0.68); EOSINOPHILS PERCENT AUTO 1 % (0-6); Hematocrit 33.4 % (37.0-53.0); Hemoglobin 11.5 g/dL (13.5-17.5); IMMATURE GRAN ABSOLUTE AUTO 0.11 K/mm3 (0.00-0.10); IMMATURE GRAN PERCENT AUTO 2 % (0-1); LYMPHOCYTES ABSOLUTE AUTO 0.71 K/mm3 (0.84-5.20); LYMPHOCYTES PERCENT AUTO 10 % (21-46); MONOCYTES PERCENT AUTO 7 % (4-13); Mean Corpuscular HGB Conc 34.4 g/dL (31.5-36.5); Mean Corpuscular Volume 90 fL (80-100); Mean Platelet Volume 9.3 fL (9.1-12.4); NEUTROPHILS ABSOLUTE AUTO 5.72 K/mm3 (1.96-9.15); NEUTROPHILS PERCENT AUTO 80 % (41-73); Platelet Count 350 K/mm3 (150-400); RDW Coefficient Variation 13.3 % (11.7-14.2); RDW Standard Deviation 43.7 fL (35.1-46.3); Red Blood Cell Count 3.71 M/mm3 (4.30-5.90); White Blood Cell Count 7.13 K/mm3 (4.00-11.30)
--- NOTE | 2023-01-28 05:46 | NUR ---
SHIFT SUMMARY- PT IS CONFUSED. SLEPT MOST OF THIS SHIFT. WOKE UP INTERMITENTLY WITH URINARY URGENCY AND WAS UNPLESANT DURING THIS TIME. HE WAS DIFFICULT TO REDIRECT AND SWORE FREQUENTLY. THIS MORNING HE WAS PLESANT AND COOPERATIVE. HIS BED IS IN THE LOW POSITION AND CALL LIGHT IS WITIN REACH.
[2023-01-28 06:16] LABS: Albumin, Blood 1.9 g/dL (3.4-5.0); Anion Gap 6 mmol/L (6-16); Blood Urea Nitrogen 9 mg/dL (8-24); Bun/Creatinine Ratio 17.7 (12.0-20.0); CO2, Blood 22 mmol/L (21-32); Calcium, Blood 8.4 mg/dL (8.5-10.1); Chloride, Blood 106 mmol/L (98-108); Creatinine, Blood 0.51 mg/dL (0.60-1.20); Glomerular Filtration Rate 115 (60-); Glucose, Blood 101 mg/dL (70-99); Magnesium, Blood 1.8 mg/dL (1.6-2.4); Phosphorus, Blood 3.6 mg/dL (2.5-4.9); Potassium, Blood 3.9 mmol/L (3.5-5.5); Sodium, Blood 134 mmol/L (136-145)
[2023-01-28 07:42] VITALS: BP 144/73
[2023-01-28 14:56] VITALS: BP 132/72
[2023-01-28 19:30] VITALS: BP 142/95
--- NOTE | 2023-01-28 19:49 | NUR ---
SHIFT SUMMARY A&O X 2-3. VSS. PT RESTED THROUGHOUT SHIFT. WOULD PERIODICALLY IMPULSIVELY GET OUT OF BED TO URINATE. BED ALARM ON & PT ON CAMERA. PT IS ABLE TO COMPLETE FUL SENTENCES TODAY HOWEVER IS CONFUSED MAJORITY OF THE TIME. IS PLEASANT & COOPERATIVE WITH CARE, THOUGH CAN BE CRANKY AT TIMES. IS REDIRECTABLE. IS A FEEDER. TAKES HIS MEDS WHOLE WITH WATER. CALL LIGHT WITHIN REACH & BED IN LOW POSITION. CODE STATUS CHANGED TODAY. POLST IN THE ROOM. PALLIATIVE CARE CONSULT PENDING.
[2023-01-29 03:13] VITALS: BP 135/96
[2023-01-29 05:36] LABS: Albumin, Blood 2.2 g/dL (3.4-5.0); Anion Gap 5 mmol/L (6-16); Blood Urea Nitrogen 8 mg/dL (8-24); Bun/Creatinine Ratio 14.9 (12.0-20.0); CO2, Blood 25 mmol/L (21-32); Calcium, Blood 8.9 mg/dL (8.5-10.1); Chloride, Blood 107 mmol/L (98-108); Creatinine, Blood 0.54 mg/dL (0.60-1.20); Glomerular Filtration Rate 113 (60-); Glucose, Blood 97 mg/dL (70-99); Phosphorus, Blood 4.1 mg/dL (2.5-4.9); Potassium, Blood 3.9 mmol/L (3.5-5.5); Sodium, Blood 137 mmol/L (136-145)
--- NOTE | 2023-01-29 05:48 | NUR ---
SUMMARY: PATIENT CONFUSED THROUGHOUT NIGHT. AOX1 BECAME MORE RESTLESS THROUGHOUT NIGHT GETTING OUT OF BED ABOUT EVERY 30 MINUTES. PATIENT CONT/INC OF URINE. EASILY VERBALLY REDIRECTED. GAVE PRN SEROQUEL AND RECIEVED ONE TIME DOSE IV ATIVAN. PATIENT PULLED OUT AN IV ON ACCIDENT. VERY UNSTEADY ON FEET. PATIENT DID NOT REST AT ALL OVERNIGHT. VSS. CALL LIGHT IN REACH. ON CAMERA MONITOR. BED ALARM ON.
[2023-01-29 07:24] VITALS: BP 151/106
[2023-01-29 15:00] VITALS: BP 125/80
--- NOTE | 2023-01-29 18:01 | NUR ---
PT HAS BEEN MOSTLY PLEASANT TODAY. X-SPOUSE IN TO SEE TODAY. DID AMBULATE WITH 1 ASST TO BATHROOM. ALSO WORKED WITH PT AND OT TODAY. HE PULLED IV AGAIN. X2 LAST NITE. DR PALOMOAYED NO IV. SPOUSE STATES SEEMS CLOSE TO BASELINE. NO NEW CONCERNS NOTED TODAY. BED IN LOW POSITION, CALLLITE IN REACH, BED ALARM ON FOR SAFETY
[2023-01-29 19:46] VITALS: BP 132/87
--- NOTE | 2023-01-30 05:04 | NUR ---
SUMMARY: PATIENT VERY IMPULSIVE AND CONFUSED AT START OF SHIFT. PATIENT URINATED OFF THE SIDE OF THE BED. WHEN ASKED WHY HE DID THAT HE STATED THAT HE WAS URINATING ON THE TREES IN THE [place]. PATIENT PLACED IN A VEST JOSUE RESTRAINT FOR HIS SAFETY. PATIENT WAS ABLE TO GET SOME DECENT REST. STILL OCCASIONALLY ATTEMPTED TO GET OUT OF BED BUT RESTED MORE. VSS. AOX1 SELF. CALL LIGHT IN REACH. BED ALARM AND CAMERA MONITOR IN PLACE FOR SAFETY.
[2023-01-30 05:45] VITALS: BP 144/101
[2023-01-30 06:53] LABS: Bun/Creatinine Ratio 23.1 (12.0-20.0); Calcium, Blood 8.6 mg/dL (8.5-10.1); Creatinine, Blood 0.52 mg/dL (0.60-1.20); Potassium, Blood 4.2 mmol/L (3.5-5.5)
[2023-01-30 07:39] VITALS: BP 137/97
[2023-01-30 15:12] VITALS: BP 118/71
--- NOTE | 2023-01-30 18:16 | NUR ---
PATIENT A/O TO SELF ONLY, UP WITH FWW, GB AND 1 ASSIST. REMAINS IMPULSIVE, BUT IS VERY REDIRCTABLE TODAY. COOPERATIVE WITH CARE. FIXATED TODAY ON HIS W/C AND FREQUENTLY TRYING TO GET UP LOOKING FOR IT. WORKED WITH PT/OT. NO IV SITE. TOLERATING REGULAR DIET. DENIES ANY PAIN. JOSUE VEST REMOVED AT 1600 TODAY AND PATIENT DID WELL SITTING IN [place] WITH STAFF. NO NEW CONCERNS THIS SHIFT.
[2023-01-30 20:03] VITALS: BP 120/77
[2023-01-31 04:44] VITALS: BP 106/70
[2023-01-31 05:38] LABS: BASOPHILS ABSOLUTE AUTO 0.02 K/mm3 (0.00-0.23); BASOPHILS PERCENT AUTO 1 % (0-2); EOSINOPHILS ABSOLUTE AUTO 0.17 K/mm3 (0.00-0.68); EOSINOPHILS PERCENT AUTO 4 % (0-6); Hematocrit 34.6 % (37.0-53.0); Hemoglobin 11.5 g/dL (13.5-17.5); IMMATURE GRAN ABSOLUTE AUTO 0.03 K/mm3 (0.00-0.10); IMMATURE GRAN PERCENT AUTO 1 % (0-1); LYMPHOCYTES PERCENT AUTO 22 % (21-46); MONOCYTES ABSOLUTE AUTO 0.28 K/mm3 (0.16-1.47); MONOCYTES PERCENT AUTO 7 % (4-13); Mean Corpuscular HGB Conc 33.2 g/dL (31.5-36.5); Mean Corpuscular Volume 90 fL (80-100); Mean Platelet Volume 9.1 fL (9.1-12.4); NEUTROPHILS ABSOLUTE AUTO 2.76 K/mm3 (1.96-9.15); NEUTROPHILS PERCENT AUTO 66 % (41-73); Platelet Count 473 K/mm3 (150-400); RDW Coefficient Variation 13.2 % (11.7-14.2); RDW Standard Deviation 43.2 fL (35.1-46.3); Red Blood Cell Count 3.83 M/mm3 (4.30-5.90); White Blood Cell Count 4.16 K/mm3 (4.00-11.30)
--- NOTE | 2023-01-31 05:55 | NUR ---
SUMMARY: PATIENT MUCH BETTER THIS EVENING. VERY PLEASANT WITH STAFF. ONLY ATTEMPTS TO GET UP WHEN HE HAS TO URINATE. VERY EASILY REDIRECTABLE AND FOLLOWS DIRECTIONS. VSS.
[2023-01-31 05:58] LABS: Bun/Creatinine Ratio 21.8 (12.0-20.0); Calcium, Blood 8.8 mg/dL (8.5-10.1); Creatinine, Blood 0.6 mg/dL (0.60-1.20); Potassium, Blood 4.1 mmol/L (3.5-5.5)
[2023-01-31 07:00] VITALS: BP 103/70
[2023-01-31 15:34] VITALS: BP 131/85
[2023-01-31 16:23] LABS: BASOPHILS ABSOLUTE AUTO 0.03 K/mm3 (0.00-0.23); BASOPHILS PERCENT AUTO 1 % (0-2); EOSINOPHILS PERCENT AUTO 2 % (0-6); Hematocrit 34.9 % (37.0-53.0); Hemoglobin 11.7 g/dL (13.5-17.5); IMMATURE GRAN ABSOLUTE AUTO 0.03 K/mm3 (0.00-0.10); IMMATURE GRAN PERCENT AUTO 1 % (0-1); LYMPHOCYTES ABSOLUTE AUTO 1.04 K/mm3 (0.84-5.20); LYMPHOCYTES PERCENT AUTO 19 % (21-46); MONOCYTES ABSOLUTE AUTO 0.28 K/mm3 (0.16-1.47); MONOCYTES PERCENT AUTO 5 % (4-13); Mean Corpuscular HGB 30.5 pg (26.0-34.0); Mean Corpuscular HGB Conc 33.5 g/dL (31.5-36.5); Mean Corpuscular Volume 91 fL (80-100); Mean Platelet Volume 9.2 fL (9.1-12.4); NEUTROPHILS ABSOLUTE AUTO 4.12 K/mm3 (1.96-9.15); NEUTROPHILS PERCENT AUTO 74 % (41-73); Platelet Count 495 K/mm3 (150-400); RDW Coefficient Variation 13.2 % (11.7-14.2); RDW Standard Deviation 44.2 fL (35.1-46.3); Red Blood Cell Count 3.83 M/mm3 (4.30-5.90)
--- NOTE | 2023-01-31 16:42 | NUR ---
PATIENT A/O TO SELF AND FAMILY ONLY. VSS THIS SHIFT, ON RA. PATIENT WORKING WITH PT/OT. UP WITH FWW, GB AND 1 ASSIST. VERY REDIRECTABLE AND PLEASANT WIT CARE TODAY. ABLE TO MAKE NEEDS KNOWN. AWAITING LABORER HIGH DENSITY PRESS PLACEMENT. NO NEW CONCERNS THIS SHIFT.
[2023-01-31 19:12] VITALS: BP 126/85
[2023-02-01 05:57] LABS: BASOPHILS ABSOLUTE AUTO 0.02 K/mm3 (0.00-0.23); BASOPHILS PERCENT AUTO 1 % (0-2); EOSINOPHILS ABSOLUTE AUTO 0.23 K/mm3 (0.00-0.68); EOSINOPHILS PERCENT AUTO 5 % (0-6); Hematocrit 34.3 % (37.0-53.0); Hemoglobin 11.6 g/dL (13.5-17.5); IMMATURE GRAN ABSOLUTE AUTO 0.03 K/mm3 (0.00-0.10); IMMATURE GRAN PERCENT AUTO 1 % (0-1); LYMPHOCYTES ABSOLUTE AUTO 0.92 K/mm3 (0.84-5.20); LYMPHOCYTES PERCENT AUTO 21 % (21-46); MONOCYTES ABSOLUTE AUTO 0.31 K/mm3 (0.16-1.47); MONOCYTES PERCENT AUTO 7 % (4-13); Mean Corpuscular HGB 30.5 pg (26.0-34.0); Mean Corpuscular HGB Conc 33.8 g/dL (31.5-36.5); Mean Corpuscular Volume 90 fL (80-100); Mean Platelet Volume 8.9 fL (9.1-12.4); NEUTROPHILS PERCENT AUTO 65 % (41-73); Platelet Count 448 K/mm3 (150-400); RDW Coefficient Variation 13.2 % (11.7-14.2); RDW Standard Deviation 43.5 fL (35.1-46.3); White Blood Cell Count 4.31 K/mm3 (4.00-11.30)
--- NOTE | 2023-02-01 06:16 | NUR ---
SUMMARY: NO ACUTE EVENTS OVERNIGHT. PATIENT AOX1. VERY PLEASANT WITH STAFF. PLEASANTLY CONFUSED. EASILY REDIRECTABLE. IMPULSIVE TO GET UP BUT REALLY ONLY GETS UP TO GO URINATE. AMBULATES 1X ASSIST WITH FWW.
[2023-02-01 07:05] VITALS: BP 120/79
[2023-02-01 07:13] LABS: Bun/Creatinine Ratio 21.1 (12.0-20.0); Calcium, Blood 9.1 mg/dL (8.5-10.1); Creatinine, Blood 0.62 mg/dL (0.60-1.20)
[2023-02-01 16:17] VITALS: BP 124/85
[2023-02-01 16:32] LABS: BASOPHILS ABSOLUTE AUTO 0.03 K/mm3 (0.00-0.23); BASOPHILS PERCENT AUTO 0 % (0-2); EOSINOPHILS ABSOLUTE AUTO 0.16 K/mm3 (0.00-0.68); EOSINOPHILS PERCENT AUTO 2 % (0-6); Hematocrit 36.2 % (37.0-53.0); Hemoglobin 12.2 g/dL (13.5-17.5); IMMATURE GRAN ABSOLUTE AUTO 0.05 K/mm3 (0.00-0.10); IMMATURE GRAN PERCENT AUTO 1 % (0-1); LYMPHOCYTES ABSOLUTE AUTO 1.21 K/mm3 (0.84-5.20); LYMPHOCYTES PERCENT AUTO 17 % (21-46); MONOCYTES ABSOLUTE AUTO 0.42 K/mm3 (0.16-1.47); MONOCYTES PERCENT AUTO 6 % (4-13); Mean Corpuscular HGB 30.3 pg (26.0-34.0); Mean Corpuscular HGB Conc 33.7 g/dL (31.5-36.5); Mean Corpuscular Volume 90 fL (80-100); Mean Platelet Volume 9.1 fL (9.1-12.4); NEUTROPHILS ABSOLUTE AUTO 5.26 K/mm3 (1.96-9.15); NEUTROPHILS PERCENT AUTO 74 % (41-73); Platelet Count 529 K/mm3 (150-400); RDW Coefficient Variation 13.3 % (11.7-14.2); RDW Standard Deviation 43.9 fL (35.1-46.3); Red Blood Cell Count 4.02 M/mm3 (4.30-5.90); White Blood Cell Count 7.13 K/mm3 (4.00-11.30)
--- NOTE | 2023-02-01 17:27 | NUR ---
NO ACUTE CHANGES THIS SHIFT. PATIENT CONTINUES TO BE IMPULSIVE, BUT VERY REDIRECTABLE. PLEASANT AND COOPERATIVE WITH CARE. A/O TO SELF ONLY. NYSTATIN ORDERED FOR RASH THAT DEVELOPED TO GROIN AREA. TOLERATING REGULAR DIET. FAMILY AT BEDSIDE THIS AFTERNOON AND WHEELED PATIENT OUTSIDE FOR A FEW MINUTES. FALL PRECAUTIONS IN PLACE. UP WITH FWW, GB AND SBA.
[2023-02-01 18:23] VITALS: BP 137/86
[2023-02-01 18:33] VITALS: BP 137/86
[2023-02-01 19:50] VITALS: BP 132/80
[2023-02-01 19:51] VITALS: BP 128/81
--- NOTE | 2023-02-02 03:07 | NUR ---
INTERIOR DESIGN COORDINATOR SUMMARY VSS. WAS UP IN CHAIR AT BEDSIDE, WITH ALARM ON DUE TO UNSTEADINESS IN AMBULATION. MULTIPLE ATTEMPTS TO STAND UP AND TRY TO AMBULATE, NONRECEPTIVE TO REDIRECTION, CAUSING POTENTIAL DANGER TO SAFETY. MD NOTIFIED AND JOSUE PLACED ON HIM TO PREVENT POTENTIAL SELF HARM. CRRENTLY RESTING QUIETLY IN BED. WILL CONTINUE TO MONITOR. CALL LIGHT IN REACH. RAILS UP X 2. CAMERA ON.
[2023-02-02 07:23] VITALS: BP 115/78
[2023-02-02 15:38] VITALS: BP 108/75
--- NOTE | 2023-02-02 18:24 | NUR ---
NO ACUTE CHANGES, TBI, FAMILY VISITED, PATIENT BECAME AGITATED, MEDICATED WITH SEROQUEL X2 TODAY. PATIENT PLEASANT AND REGULARLY RE EDUCATED, CALL LIGHT WITH IN REACH, BED AND CHAIR ALARMS IN USE
[2023-02-02 21:29] VITALS: BP 109/76
[2023-02-03 06:48] LABS: BASOPHILS ABSOLUTE AUTO 0.04 K/mm3 (0.00-0.23); BASOPHILS PERCENT AUTO 1 % (0-2); EOSINOPHILS ABSOLUTE AUTO 0.17 K/mm3 (0.00-0.68); EOSINOPHILS PERCENT AUTO 3 % (0-6); Hematocrit 35.7 % (37.0-53.0); Hemoglobin 11.9 g/dL (13.5-17.5); IMMATURE GRAN ABSOLUTE AUTO 0.09 K/mm3 (0.00-0.10); IMMATURE GRAN PERCENT AUTO 2 % (0-1); LYMPHOCYTES ABSOLUTE AUTO 0.93 K/mm3 (0.84-5.20); LYMPHOCYTES PERCENT AUTO 15 % (21-46); MONOCYTES ABSOLUTE AUTO 0.43 K/mm3 (0.16-1.47); MONOCYTES PERCENT AUTO 7 % (4-13); Mean Corpuscular HGB 29.9 pg (26.0-34.0); Mean Corpuscular HGB Conc 33.3 g/dL (31.5-36.5); Mean Corpuscular Volume 90 fL (80-100); Mean Platelet Volume 9.4 fL (9.1-12.4); NEUTROPHILS ABSOLUTE AUTO 4.39 K/mm3 (1.96-9.15); NEUTROPHILS PERCENT AUTO 73 % (41-73); Platelet Count 437 K/mm3 (150-400); RDW Coefficient Variation 13.2 % (11.7-14.2); RDW Standard Deviation 43.8 fL (35.1-46.3); Red Blood Cell Count 3.98 M/mm3 (4.30-5.90); White Blood Cell Count 6.05 K/mm3 (4.00-11.30)
--- NOTE | 2023-02-03 07:17 | NUR ---
levon slept about 50% of the night. otherwise, he was laying in bed quietly staring at the ceiling. this morning, he came out of his room, and explained that he had "forgotton to give his friends the motorhome keys and Needed to go out again". I explained to him that this unit in the hospital is locked, and we would've known if the doors to leave would have been opened. Levon sat down and asked if he had hallucinated "the whole thing." After that, he just kept apologizing. He was difficult to console after that, and this RN spent time with him until he was able to relax again
[2023-02-03 07:24] LABS: Bun/Creatinine Ratio 21.7 (12.0-20.0); Calcium, Blood 8.9 mg/dL (8.5-10.1); Creatinine, Blood 0.69 mg/dL (0.60-1.20); Potassium, Blood 4.1 mmol/L (3.5-5.5)
[2023-02-03 07:51] VITALS: BP 118/79
[2023-02-03 14:57] VITALS: BP 108/61
--- NOTE | 2023-02-03 18:43 | NUR ---
MAKES NEEDS KNOWN 10 MINUTE MEMORY, EASILY DIRECTABLE AND COMPLIANT TODAY, AMBULATED IN HALLS WITH PT AND INSTRUMENT REPAIR TECHNICIAN, CHAIR/BED ALARM ON AT ALL TIMES, MICHELLE AND DAUGHTER DID NOT VISIT TODAY. WILL RELAY TO PM RN
[2023-02-03 21:09] VITALS: BP 137/87
--- NOTE | 2023-02-04 04:39 | NUR ---
AGAIN, YOGESH SLEPT ABOUT 50% OF THE NIGHT. HE WOULD WAKE VERY DISORIENTED AND ASK WHERE HE WAS AND HOW HIS WOULD FIND HIM. HIS MEMORY APPEARS TO LAST ABOUT 5-10 MINUTES. HE REMAINS VERY AWKWARD AND UNSTEADY WITH WALKER AND IS IMPULSIVE AND A VERY BIG FALL RISK.
[2023-02-04 05:18] VITALS: BP 110/73
--- NOTE | 2023-02-04 05:22 | NUR ---
SHIFT SUMMARY: PT IS ALERT AND ORIENTED TO SELF. FORGETFUL, EASILY REDIRECTABLE. STANDBY ASSIST TO THE BATHROOM AND WALKING IN ROOM AND HALLWAY. CONTINENT, ATTENDS IN PLACE. TOLERATING PO INTAKE WELL, REPORTS URINATING WITHOUT DIFFICULTY. BED ALARM ON, PT HAS NOT USED CALL LIGHT TO ALERT STAFF WHEN HE WISHES TO GET OUT OF BED, REMOTE MONITORING ON. WILL CONTINUE TO MONITOR UNTIL REPORT IS GIVEN TO DAY SHIFT RN.
--- NOTE | 2023-02-04 09:44 | NUR ---
pateint sleeping in this am, pleasant to care, no distress
--- NOTE | 2023-02-04 13:53 | NUR ---
FAMILY IN VISITING WITH PATIENT
[2023-02-04 15:27] VITALS: BP 110/70
--- NOTE | 2023-02-04 16:15 | NUR ---
ALERT AND ORIENTED TO SELF, VERY CONFUSED AND FORGETFUL FROM TBI, PATIENT CONTINUALLY REDIRECTED AND EDUCATED. FAMILY VISITED TODAY, PATIENT BECOMES MORE IRRITABLE AFTER FAMILY LEAVES, OINTMENT TO SCROTUMN, REPORTED MOUTH SORES TO DR LANCASTER. NO ACUTE CHANGES, WILL RELAY TO PM RN
[2023-02-04 19:18] VITALS: BP 111/79
--- NOTE | 2023-02-04 19:35 | NUR ---
RECEIVED REPORT AND ASSUMED CARE OF PT. PT IS SITTING UP IN THE CHAIR AT BEDSIDE, REPORTS THAT HIS TAILBONE IS SORE, ENCOURAGED OFFLOADING THE AREA. PT VERBALIZES PRIOR TEACHING AND OFFLOADING TECHNIQUES. PT STATES HIS SISTER IS COMING TO SEE HIM. CALL LIGHT IN REACH. PT DENIES ANY NEEDS AT THIS TIME.
--- NOTE | 2023-02-05 03:32 | NUR ---
SHIFT SUMMARY: YOGESH IS A&OX1-2. ORIENTED TO SELF, OCCASIONALLY REMEMBERS THAT HE IS IN THE HOSPITAL. HE HAS SLEPT INTERMITTENTLY DURING THE NIGHT, AWAKING TO USE THE BATHROOM. ENCOURAGED TAKING A SHOWER, WHICH HE DECLINED, BUT WAS AGREEABLE TO NEW PAPER SCRUBS AND ATTENDS. PT HAS BEEN PLEASANT AND COOPERATIVE THIS SHIFT. HE DID REPORT HAVING UNSETTLING DREAMS THIS SHIFT BUT RESPONDED WELL TO CALM REASSURANCE. HE IS A STANDBY ASSIST FOR AMBULATION WITH THE FWW AND GAIT BELT. HE EXPRESSED THE DESIRE TO SPEAK WITH HIS EX- AND CARE MANAGEMENT ABOUT HIS DISCHARGE PLAN. PT DID UTILIZE THE BARRIER CREAM THIS SHIFT. HE IS LYING QUIETLY IN BED WITH HIS EYES CLOSED AND EVEN, UNLABORED RESPIRATIONS. SWALLOWED HIS MEDICATIONS WITHOUT DIFFICULTY. WCTM UNTIL REPORT IS GIVEN TO DAY SHIFT RN.
[2023-02-05 06:12] VITALS: BP 94/61
[2023-02-05 06:29] LABS: BASOPHILS ABSOLUTE AUTO 0.02 K/mm3 (0.00-0.23); BASOPHILS PERCENT AUTO 0 % (0-2); EOSINOPHILS ABSOLUTE AUTO 0.24 K/mm3 (0.00-0.68); EOSINOPHILS PERCENT AUTO 5 % (0-6); Hematocrit 34.7 % (37.0-53.0); Hemoglobin 11.5 g/dL (13.5-17.5); IMMATURE GRAN ABSOLUTE AUTO 0.06 K/mm3 (0.00-0.10); IMMATURE GRAN PERCENT AUTO 1 % (0-1); LYMPHOCYTES ABSOLUTE AUTO 0.94 K/mm3 (0.84-5.20); LYMPHOCYTES PERCENT AUTO 18 % (21-46); MONOCYTES PERCENT AUTO 9 % (4-13); Mean Corpuscular HGB 30.1 pg (26.0-34.0); Mean Corpuscular HGB Conc 33.1 g/dL (31.5-36.5); Mean Corpuscular Volume 91 fL (80-100); Mean Platelet Volume 9.4 fL (9.1-12.4); NEUTROPHILS ABSOLUTE AUTO 3.59 K/mm3 (1.96-9.15); NEUTROPHILS PERCENT AUTO 67 % (41-73); Platelet Count 486 K/mm3 (150-400); RDW Coefficient Variation 13.3 % (11.7-14.2); Red Blood Cell Count 3.82 M/mm3 (4.30-5.90); White Blood Cell Count 5.35 K/mm3 (4.00-11.30)
[2023-02-05 06:50] LABS: Bun/Creatinine Ratio 22.8 (12.0-20.0); Calcium, Blood 9.2 mg/dL (8.5-10.1); Creatinine, Blood 0.61 mg/dL (0.60-1.20); Potassium, Blood 4.2 mmol/L (3.5-5.5)
[2023-02-05 07:30] VITALS: BP 93/61
[2023-02-05 14:59] VITALS: BP 126/80
--- NOTE | 2023-02-05 16:07 | NUR ---
SHIFT SUMMARY PT AxOx2-3 WITH INTERM FORGETFULNESS/CONFUSION. PT IS REDIRECTABLE WHEN NEEDED. PT IS SBA WITH FWW BUT IMPULSIVE AT TIMES WHEN HE NEEDS TO USE THE BATHROOM. PT ON CAMERA, AND BED/CHAIR ALARMS ON. PT REPORTS SORES IN MOUTH ARE PAINFUL THIS SHIFT. MEDICATED PER EMAR. PT IS CURRENTLY AWAITING PLACEMENT. POSS [facility]. VITALS REVIEWED. PT CURRENTLY SITTING UP IN CHAIR WATCHING TV. CALL LIGHT IN REACH.
--- NOTE | 2023-02-05 21:49 | NUR ---
PATIENT EDUCATION PATIENT ASKED ME WHAT HIS MEDICATION COLCHICINE WAS FOR. THIS STUDENT NURSE INFORMED HIM IT WAS FOR GOUT. PATIENT STATED "I'VE HAD FOUR DIFFERENT PEOPLE TELL ME I HAVE GOUT, BUT I HAVE NO IDEA WHAT THAT EVEN IS." I EXPLAINED THAT HIS MEDICATION WAS COMMONLY PRESCRIBED FOR GOUT BECAUSE IT IS AN ANTI-INFLAMMATORY, LIKE IBUPROFEN. I EXPLAINED THAT GOUT CAUSES INFLAMMATION IN THE JOINTS. I ASKED HIM IF HE WAS EXPERIENCING ANY PAINFUL SWELLING FEELINGS IN HIS JOINTS. HE REPLIED "YEAH. I FEEL THAT WAY A LOT. IT HURTS ALL THE TIME." I TOLD HIM THAT IS WHAT THE MEDICATION IS FOR. HE STATED "THAT MAKES A LOT OF SENSE. THANK YOU FOR EXPLAINING THAT TO ME WITHOUT BEING CONDESCENDING. I AM GLAD THAT I HAVE SOMETHING FOR THE SWELLING. THAT WILL HELP A LOT." PATIENT SEEMED TO UNDERSTAND WHAT THE MEDICATION WAS FOR AND WHAT GOUT WAS AFTER TEACHING.
[2023-02-05 22:53] VITALS: BP 120/80
--- NOTE | 2023-02-06 05:20 | NUR ---
SHIFT SUMMARY PATIENT ADMIT FOR AMS AND HYPONATREMIA. PATIENT CONFUSED BUT REDIRECTABLE. WOKE UP THINKING HE WAS IN DETENTION. ABLE TO REORIENT TEMPORARILY BUT FORGETS AFTER SLEEPING. ASKED WHEN HE WAS IN [place]. INFORMED PT THAT HE HAS BEEN IN [facility] SINCE 01/26/23. GAVE SEROQUEL PRN ONCE DURING SHIFT TO HELP HIM RELAX AND SLEEP. EXPLAINED POLST INFORMATION. EDUCATED ON THE ANTI-INFLAMMATORY PROPERTIES OF COLCHICINE. ABLE TO AMBULATE INDEPENDENTLY TO BATHROOM WITH STANDBY ASSIST, PT IS SLIGHTLY UNSTEADY. CANKER SORES IN MOUTH. NUMBNESS IN BLE FROM MID-CALF DOWN TO TOES.
[2023-02-06 05:36] VITALS: BP 110/77
[2023-02-06 08:16] VITALS: BP 135/92
[2023-02-06] MEDS ORDERED: NYSTATIN100000 U10 MT (14:42)
[2023-02-06] MEDS ORDERED: VALA500 PO (14:43)
[2023-02-06] MEDS ORDERED: B-1100 M1 PO (14:43)
[2023-02-06 15:09] VITALS: BP 117/84
--- NOTE | 2023-02-06 16:03 | NUR ---
PATIENT IS A FALL RISK. PATIENT INSISTS ON PRIVACY IN THE BATHROOM AND GETS AGITATED IF STAFF TRY TO ASSIST HIM PAST THE BATHROOM DOOR, HE WILL TURN AROUND AND GRAB THE DOOR AND SLAM IT BEHIND HIM. DURRING THIS TIME I AM UNABLE TO HAVE EYES ON HIM FOR SAFETY.
--- NOTE | 2023-02-06 16:51 | NUR ---
SHIFT SUMMARY: Pt remains alert and oriented this shift with times of short term memory deficit. Reminded to call for ast when needing to get up. Call light in reach, pt verbazlizes understanding. Pt ambulates in hallway with rolling walker and SBA. VSS, resp even nonlabored on RA. Denies pain. Plan remains to dc to memory unit 02/07. Will continue to follow.
--- NOTE | 2023-02-06 21:47 | NUR ---
SHIFT SUMMARY PT ADMIT FOR AMS AND HYPONATREMIA. PLANS FOR DC TOMORROW TO [facility]. HX OF TBI, PTSD, BIPOLAR, ETOH. SBA W/WALKER, OTHERWISE INDEPENDENT. STILL CONFUSED, BUT REDIRECTABLE AND PLEASANT. ADMIN NYSTATIN MOUTH RINSE FOR PAINFUL CANKER SORES. ABLE TO TAKE PILLS WHOLE. REMINDED OF IMPORTANCE OF USE OF CALL LIGHT. MORE COOPERATIVE WITH THIS TODAY. BARRIER CREAM ADMIN TO INNER THIGHS DT VISIBLE RASHES. AGREED TO ROBE CARE TONIGHT. SOME REDNESS ON SCROTUM, NO OBVIOUS SORES. CHANGED BRIEF AND PAPER SCRUBS.
[2023-02-07 03:32] VITALS: BP 124/83
[2023-02-07 07:13] VITALS: BP 110/74
--- NOTE | 2023-02-07 11:17 | NUR ---
DISCHARGE PT DISCHARGED TO [facility]. PICKED UP BY [facility]. PT FORGETFUL AND FELT "AMBUSHED" WHEN TRANSPORT CAME TO PICK HIM UP. PT REMINDED THAT THIS HAS BEEN DISCUSSED AT LENGTH. JAIMIE MARTINEZ EXWIFE CALLED TO HELP EASE HIS ANXIETY ABOUT LEAVING. THIS WORKED WELL AND PT LEFT IN WHEELCHAIR. NO CHANGES IN ASSESSMENT PRIOR TO DC.
== END 2023-02-07 11:00 | disposition home or self-care (01) | DRG 640 ==
LOC: ER 16:55 → MEDS 21:07 → ENPENDDIS 02-06 13:03 → MEDS 02-07 11:00
PROVIDERS: Emergency Medicine; Family Medicine; Internal Medicine; Nurse Practitioner Acute Care; ADMIT Internal Medicine
DX: E87.1 Hypo-osmolality and hyponatremia (principal); G92.8 Other toxic encephalopathy; N39.0 Urinary tract infection, site not specified; F10.27 Alcohol dependence with alcohol-induced persisting dementia; Z66 Do not resuscitate; Z51.5 Encounter for palliative care; F43.10 Post-traumatic stress disorder, unspecified; F31.9 Bipolar disorder, unspecified; E86.0 Dehydration; B96.20 Unspecified Escherichia coli [E. coli] as the cause of diseases classified elsewhere; K59.00 Constipation, unspecified; K12.0 Recurrent oral aphthae; Z20.822 Contact with and (suspected) exposure to COVID-19; F17.210 Nicotine dependence, cigarettes, uncomplicated; D69.6 Thrombocytopenia, unspecified; E86.1 Hypovolemia; I10 Essential (primary) hypertension; Z79.899 Other long term (current) drug therapy; Z87.820 Personal history of traumatic brain injury; Z71.6 Tobacco abuse counseling; Z98.890 Other specified postprocedural states; Z86.79 Personal history of other diseases of the circulatory system; Z79.2 Long term (current) use of antibiotics
CPT/HCPCS: 0241U; 36415; 70450; 71045; 80048; 80053; 80069; 82140; 82607; 82746; 83735; 83930; 83935; 84295; 84300; 84443; 84484; 85025; 85027; 86140; 93005; 93010; 94640; 94664; 94760; 96374; 97110; 97110-CQ; 97116; 97116-CQ; 97162; 97165; 97530; 97535; 99285-25; A9270; J0696; J1650; J2060; J3475; J7030; J7040

== ENCOUNTER 2023-03-02 13:47 | Inpatient (IN) | payer OTHER ==
[~2023-03-02] VITALS: Ht 182.9 cm; Wt 88.8 kg
[2023-03-02] VITALS (27 sets, daily range): BP systolic 56–125; BP diastolic 16–106
[~2023-03-02 13:47] MED LIST changes: +B-1100 M1 PO; +NYSTATIN100000 U10 MT; +VALA500 PO
[2023-03-02 14:15] LABS: Hematocrit 33.2 % (37.0-53.0); Hemoglobin 11.7 g/dL (13.5-17.5); Mean Corpuscular HGB 29.3 pg (26.0-34.0); Mean Corpuscular HGB Conc 35.2 g/dL (31.5-36.5); Mean Corpuscular Volume 83 fL (80-100); Mean Platelet Volume 10.8 fL (9.1-12.4); Platelet Count 208 K/mm3 (150-400); RDW Coefficient Variation 14.2 % (11.7-14.2); White Blood Cell Count 8.01 K/mm3 (4.00-11.30)
[2023-03-02 14:29] LABS: Albumin, Blood 2.2 g/dL (3.4-5.0); Albumin/Globulin Ratio 0.5 (0.8-1.8); Bilirubin, Total 1.2 mg/dL (0.1-1.0); Bun/Creatinine Ratio 19.2 (12.0-20.0); Calcium, Blood 8.2 mg/dL (8.5-10.1); Creatinine, Blood 3.02 mg/dL (0.60-1.20); Globulin, Blood 4.4 g/dL (2.2-4.0); Potassium, Blood 3.8 mmol/L (3.5-5.5); Total Protein, Blood 6.6 g/dL (6.4-8.2)
[2023-03-02 14:38] LABS: BAND PERCENT MAN 16 % (0-8); BASOPHILS PERCENT MAN 0 % (0-2); EOSINOPHILS PERCENT MAN 0 % (0-6); LYMPHOCYTES % ATYPICAL MANUAL 1 % (0-0); LYMPHOCYTES PERCENT MAN 4 % (21-46); METAMYELOCYTE ABSOLUTE MAN 0.32 K/mm3 (0.00-0.00); METAMYELOCYTE PERCENT MAN 4 % (0-0); MONOCYTES ABSOLUTE MAN 0.48 K/mm3 (0.16-1.47); MONOCYTES PERCENT MAN 6 % (4-13); SEG NEUTROPHILS PERCENT MAN 69 % (41-73); TOTAL CELLS COUNTED 100
[2023-03-02 15:25] LABS: Source, Urine Clean Catch
[2023-03-02 15:50] LABS: Appearance, Urine Cloudy (Clear); Blood, Urine 4+ (Neg); Color, Urine Amber (P-Yellow); Glucose Qualitative, Urine Neg (Neg); Ketones, Urine 1+ (Neg); Leukocyte Esterase, Urine 2+ (Neg); Nitrite, Urine Neg (Neg); Protein, Urine 3+ (Neg); Specific Gravity, Urine 1.015 (1.003-1.022); Urobilinogen, Urine 2+ (Normal)
[2023-03-02 16:02] LABS: Bilirubin, Urine 2+ (Neg)
[2023-03-02 16:10] LABS: Amorphous Mod (0-Heavy); Bacteria Mod /hpf; Hyaline Casts 0-2 /lpf (0-2); Squamous Epithelial Cells Few /hpf (Few)
[2023-03-02 16:20] LABS: Influenza A, PCR NEGATIVE (NEGATIVE); Influenza B, PCR NEGATIVE (NEGATIVE); Resp Syncytial Virus, PCR NEGATIVE (NEGATIVE); SARS-Cov-2 (COVID-19) PCR, MMC NEGATIVE (NEGATIVE)
--- NOTE | 2023-03-02 16:33 | NUR ---
Telephone report received from SANDY Allison. Pt to arrive shortly to PCU 9.
--- NOTE | 2023-03-02 18:45 | NUR ---
1730 Approx time of arrival of pt from ED to PCU 9. [address] Hinds. Pt's RR 32-36/min, very coarse wet sounding lungs, audible from distance since arrival from ED. Pt is confused, restless, states "I"m really sick. I feel so disoriented". He cannot remember minute to minute simple reorientation and instructions. He is constantly pulling his oxygen off, and pulling at all wires and tubes, due to apparent confusion. No agitation. Consideration for need for bipap and pt's intolerance to it due to confusion and hence need to restrain the pt to improve his respiratory status. Orders to transfer pt to ICU for bipap with need for physical/chemical restraints restraints rec'd.a Approx 1800 Pt transferred to ICU 3, after telephone report was given to SANDY Mirza.
[2023-03-03] VITALS (76 sets, daily range): BP systolic 64–125; BP diastolic 24–94
[2023-03-03 02:47] LABS: PCO2 Arterial 95.3 mmHg (35-45); PO2 Arterial 113 mmHg (80-100); pH Blood Arterial 6.93 (7.35-7.45)
[2023-03-03 03:15] LABS: Hematocrit 37.6 % (37.0-53.0); Hemoglobin 12.1 g/dL (13.5-17.5); Mean Corpuscular HGB 28.9 pg (26.0-34.0); Mean Corpuscular HGB Conc 32.2 g/dL (31.5-36.5); Mean Platelet Volume 10.7 fL (9.1-12.4); Platelet Count 262 K/mm3 (150-400); RDW Coefficient Variation 14.8 % (11.7-14.2); RDW Standard Deviation 48.8 fL (35.1-46.3); Red Blood Cell Count 4.18 M/mm3 (4.30-5.90); White Blood Cell Count 17.74 K/mm3 (4.00-11.30)
[2023-03-03 03:18] LABS: Mean Corpuscular Volume 90 fL (80-100)
[2023-03-03 03:38] LABS: Albumin, Blood 1.8 g/dL (3.4-5.0); Albumin/Globulin Ratio 0.4 (0.8-1.8); Bilirubin, Total 0.8 mg/dL (0.1-1.0); Bun/Creatinine Ratio 21.2 (12.0-20.0); Calcium, Blood 7.5 mg/dL (8.5-10.1); Creatinine, Blood 2.64 mg/dL (0.60-1.20); Globulin, Blood 4.1 g/dL (2.2-4.0); Potassium, Blood 4.3 mmol/L (3.5-5.5); Total Protein, Blood 5.9 g/dL (6.4-8.2)
[2023-03-03 03:39] LABS: BAND PERCENT MAN 24 % (0-8); BASOPHILS PERCENT MAN 0 % (0-2); EOSINOPHILS PERCENT MAN 0 % (0-6); LYMPHOCYTES ABSOLUTE MAN 0.53 K/mm3 (0.84-5.20); LYMPHOCYTES PERCENT MAN 3 % (21-46); METAMYELOCYTE ABSOLUTE MAN 0.17 K/mm3 (0.00-0.00); METAMYELOCYTE PERCENT MAN 1 % (0-0); TOTAL CELLS COUNTED 100
[2023-03-03 03:40] LABS: MONOCYTES ABSOLUTE MAN 1.41 K/mm3 (0.16-1.47); MONOCYTES PERCENT MAN 8 % (4-13); NEUTROPHILS ABSOLUTE MAN 15.61 K/mm3 (1.96-9.15); SEG NEUTROPHILS PERCENT MAN 64 % (41-73)
[2023-03-03 05:04] LABS: PCO2 Arterial 54.6 mmHg (35-45); PO2 Arterial 148 mmHg (80-100); pH Blood Arterial 7.19 (7.35-7.45)
--- NOTE | 2023-03-03 06:05 | NUR ---
SHIFT SUMMARY PATIENT BEGAN SHIFT ON BIPAP 07/05 80% WITH COMPLAINTS OF ANXIETY AND FREQUENTLY TRYING TO TAKE BIPAP MASK OFF. LUNG SOUNDS WERE COARSE T/O- LASIX 40MG IV ORDERED BY DR. ABBASI. PRECEDEX WAS INF AT 0.7MCG/KG/HR. DUE TO PATIENT ANXIETY AND CONSTANT PULLING OF LINES AND MASK, ORDER RECEIVED FROM DR. ABBASI TO TITRATE PRECEDEX TO A MAX OF 1.4 MCG/KG/HR. PRECEDEX TITRATED TO A MAX OF 1.2 MCG/KG/HR OVER A 3 HOUR PERIOD. PATIENT THEN BECAME BRADYCARDIC IN THE 50'S, HYPOTENSIVE, UNRESPONSIVE, AND DIAPHORETIC WITH A DROP IN TEMP TO 96.5F. BEAR HUGGER PLACED ON PATIENT AND PRECEDEX IMMEDIATELY PLACED ON STANDBY AND PATIENT BECAME RESPONSIVE AND HR INCREASED TO 130'S. ATTEMPTED TO RESTART PRECEDEX AT LOW DOSE, BUT BRADYCARDIA RETURNED. PRECEDEX TURNED OFF AND DC'D. LEVOPHED STARTED FOR HYPOTENSION AND CENTRAL LINE PLACED BY DR. BENTLEY. AFTER THIS EVENT, IT WAS DIFFICULT TO OBTAIN ACCURATE SPO2 READING. CALL MADE TO DR. BENTLEY AND ORDER RECEIVED FOR ABG. ABG RESULTED WITH CRITICAL RESULTS OF PH 6.93 AND CO2 95.3, HCO3 14. SODIUM BICARB 1 AMP IV PUSH AND BICARB 3 AMP GTT @ 100ML/HR ORDERED BY DR. PEREZ. PATIENT WAS STILL TACHYPNEIC AND UNRESPONSIVE TO PAIN AND VERBAL STIMULI. DR. PEREZ UPDATED AND PATIENT PREPPED FOR INTUBATION. INTUBATED WITH 8.0 ETT 24 CM @ TEETH AND OGT PLACED. REPEAT ABG SHOWED IMPROVING PH AND CO2, IONIZED CA LOW @ 1.06. DR. PEREZ NOTIFIED AND 2G CA CL IVPB ORDERED. UPDATED DR. PEREZ REGARDING TACHYCARDIA UP TO 150'S AND STILL IN AFIB RHYTHM-NO NEW ORDERS AT THIS TIME.
--- NOTE | 2023-03-03 08:33 | NUR ---
ASSUMED CARE BEDSIDE REPORT FROM ESME DELGADO AT 0700. PT INTUBATED AND SEDATED. VENT SETTINGS AC/VC 20/500/10/70%. LUNGS CLEAR, DIM/COARSE IN BASES. MODERATE THICK HELM SECRETIONS FROM ETT. PROPOFOL GTT INFUSING. RASS -4. GRIMACES c CARE, COUGH/GAG/SWALLOW REFLEX PRESENT. DOES NOT WITHDRAW EXT TO PAIN. DOES NOT FOLLOW COMMANDS. AFIB ON MONITOR, RATE 120-150'S. LEVO AND VASO GTT FOR MAP>65. ABD DISTENDED, SOFT, HYPOACTIVE BT X 4. OGT PLACED TO LIS. SCOTT PATENT, DRAINING CLOUDY YELLOW URINE TO GRAVITY. CVC TO RIJ, DRESSING C/D/I. EX-/CAREGIVER MICHELLE AT BEDSIDE. WILL CONTINUE TO MONITOR.
[2023-03-03 11:43] LABS: PCO2 Arterial 41.8 mmHg (35-45); PO2 Arterial 82.6 mmHg (80-100); pH Blood Arterial 7.34 (7.35-7.45)
[2023-03-03 11:59] LABS: International Normalized Ratio 1.41; Prothrombin Time Results 14.5 Sec (9.7-11.5)
[2023-03-03 19:22] LABS: Vancomycin, Random 11.5 ug/mL
[2023-03-04] VITALS (66 sets, daily range): BP systolic 79–128; BP diastolic 51–80
[2023-03-04 02:30] LABS: Hematocrit 31.5 % (37.0-53.0); Hemoglobin 10.9 g/dL (13.5-17.5); Mean Corpuscular HGB 29.2 pg (26.0-34.0); Mean Corpuscular HGB Conc 34.6 g/dL (31.5-36.5); Mean Corpuscular Volume 85 fL (80-100); Mean Platelet Volume 10.9 fL (9.1-12.4); Platelet Count 261 K/mm3 (150-400); RDW Coefficient Variation 14.6 % (11.7-14.2); RDW Standard Deviation 44.6 fL (35.1-46.3); Red Blood Cell Count 3.73 M/mm3 (4.30-5.90); White Blood Cell Count 29.48 K/mm3 (4.00-11.30)
[2023-03-04 02:43] LABS: Albumin, Blood 1.5 g/dL (3.4-5.0); Albumin/Globulin Ratio 0.4 (0.8-1.8); Bun/Creatinine Ratio 32.1 (12.0-20.0); Calcium, Blood 7.4 mg/dL (8.5-10.1); Creatinine, Blood 2.09 mg/dL (0.60-1.20); Magnesium, Blood 1.4 mg/dL (1.6-2.4); Phosphorus, Blood 4.1 mg/dL (2.5-4.9); Potassium, Blood 3.6 mmol/L (3.5-5.5); Total Protein, Blood 5.5 g/dL (6.4-8.2)
[2023-03-04 02:48] LABS: BAND PERCENT MAN 31 % (0-8); BASOPHILS PERCENT MAN 0 % (0-2); EOSINOPHILS PERCENT MAN 0 % (0-6); LYMPHOCYTES ABSOLUTE MAN 0.88 K/mm3 (0.84-5.20); LYMPHOCYTES PERCENT MAN 3 % (21-46); METAMYELOCYTE ABSOLUTE MAN 0.29 K/mm3 (0.00-0.00); METAMYELOCYTE PERCENT MAN 1 % (0-0); MONOCYTES ABSOLUTE MAN 0.88 K/mm3 (0.16-1.47); MONOCYTES PERCENT MAN 3 % (4-13); NEUTROPHILS ABSOLUTE MAN 27.41 K/mm3 (1.96-9.15); SEG NEUTROPHILS PERCENT MAN 62 % (41-73); TOTAL CELLS COUNTED 100
[2023-03-04 04:33] LABS: pH Blood Arterial 7.37 (7.35-7.45)
[2023-03-04 04:34] LABS: PCO2 Arterial 43.4 mmHg (35-45); PO2 Arterial 81.1 mmHg (80-100)
--- NOTE | 2023-03-04 06:08 | NUR ---
SHIFT SUMMERY PT CONTINUES TO BE INTUBATED W/OXYGEN SAT MAINTAINING > 95% THIS SHIFT W/NO ACUTE CHANGES IN RESP STATUS. PT HAS BEEN AFIB ON THE MECHANICS HANDYMAN, HYPOTENSIVE W/LEVOPHED AND VASOPRESSIN DRIPS TO MAINTAIN MAP > 65. PT HAS HEPARIN GTT A 20UNITS AND AMIODORANONE INFUSING AT 0.5MG WELL. SCOTT CATHETER DRAINING CONCENTRATED TEA COLORED URINE. TUBE FEEDING ON HOLD AT MIDNIGHT. NO ACUTE CHANGES TO PLAN OF CARE THIS SHIFT.
--- NOTE | 2023-03-04 08:33 | NUR ---
ASSUMED CARE BEDSIDE REPORT FROM ENMA DELGADO AT 0700. PT INTUBATED AND SEDATED. VENT SETTINGS AC/PC AT SHIFT CHANGE, CHANGED TO SPONT 10/8/40%, TV 450-500ML. RATE HIGH 20'S. TOLERATING WELL. LUNGS CLEAR. SMALL THICK HELM SECRETIONS FROM ETT. PROPOFOL GTT INFUSING. PT GRIMACES c CARE, CLENCHES TEETH TO ORAL CARE, SHAKES HEAD. DOES NOT WITHDRAW EXT TO PAIN. DOES NOT FOLLOW COMMANDS. OPENS EYES TO PRESSURE. AFIB, RATE 100-110'S. AMIODORONE GTT INFUSING. LEVO FOR MAP>65. OGT CLAMPED FOR SURGICAL CONSULT THIS SHIFT. ABD DISTENDED, ROUND, SOFT, NON TENDER. HYPOACTIVE BT. SCOTT PATENT, DRAINING CLOUDY LILLY URINE TO GRAVITY. STAGE 3 PRESSURE ULCER TO COCCXY, AWAITING SURGICAL CONSULT THIS SHIFT. WILL CONTINUE TO MONITOR.
[2023-03-04 09:49] LABS: U Amphetamine Screen Not Detected; U Barbituate Screen Not Detected; U Benzodiazapine Screen Not Detected; U Buprenorphine Screen Not Detected; U Cannabinoids Screen Not Detected; U Cocaine Screen Not Detected; U Methadone Screen Not Detected; U Methamphetamine Screen Not Detected; U Opiates Screen Not Detected; U Oxycodone Screen Not Detected; U Phencyclidine Screen Not Detected; U Propoxyphene Screen Not Detected
[2023-03-04 11:31] LABS: Vancomycin, Random 20.1 ug/mL
--- NOTE | 2023-03-04 17:24 | NUR ---
SHIFT SUMMARY PT REMAINS INTUBATED AND SEDATED. VENT SETTINGS AC/PC 20/12/0.85/8/40%. PT ON SPONT MOST OF SHIFT. TOLERATED WELL. CONSIDERED EXTUBATION BUT PT DIFFICULT TO ROUSE. RESPONSIVE TO PAINFUL STIMULI, UNABLE TO STAY AWAKE. FOLLOWED SIMPLE COMMANDS c REPETITIVE QUESTIONING. RESTARTED PROPOFOL. RESTARTED TUBE FEEDS. PT CONVERTED TO SR, AMIODARONE D/C'D, HEPARIN CONTINUED. SCOTT PATENT, DRAINING TO GRAVITY. WILL CONTINUE TO MONITOR UNTIL REPORT TO ONCOMING NURSE.
--- NOTE | 2023-03-04 19:46 | NUR ---
LEVOPHED DRIP RESTARTED FOR MAP <65; START RATE 2MCGS
[2023-03-05] VITALS (49 sets, daily range): BP systolic 80–133; BP diastolic 50–82
[2023-03-05 01:42] LABS: Bun/Creatinine Ratio 42.9 (12.0-20.0); Calcium, Blood 8.2 mg/dL (8.5-10.1); Creatinine, Blood 1.47 mg/dL (0.60-1.20); Potassium, Blood 3.5 mmol/L (3.5-5.5)
[2023-03-05 01:49] LABS: Hematocrit 27.7 % (37.0-53.0); Hemoglobin 9.8 g/dL (13.5-17.5); Mean Corpuscular HGB 29.2 pg (26.0-34.0); Mean Corpuscular HGB Conc 35.4 g/dL (31.5-36.5); Mean Corpuscular Volume 82 fL (80-100); Mean Platelet Volume 10.7 fL (9.1-12.4); Platelet Count 189 K/mm3 (150-400); RDW Coefficient Variation 14.6 % (11.7-14.2); RDW Standard Deviation 43.5 fL (35.1-46.3); Red Blood Cell Count 3.36 M/mm3 (4.30-5.90); White Blood Cell Count 23.59 K/mm3 (4.00-11.30)
[2023-03-05 02:16] LABS: BAND PERCENT MAN 14 % (0-8); BASOPHILS PERCENT MAN 0 % (0-2); EOSINOPHILS PERCENT MAN 0 % (0-6); LYMPHOCYTES PERCENT MAN 3 % (21-46); MONOCYTES PERCENT MAN 3 % (4-13); NEUTROPHILS ABSOLUTE MAN 22.17 K/mm3 (1.96-9.15); SEG NEUTROPHILS PERCENT MAN 80 % (41-73); TOTAL CELLS COUNTED 100
--- NOTE | 2023-03-05 06:29 | NUR ---
SHIFT SUMMERY PT IS INTUBATED, ON SPONTANEOUS 07/01 30% TOLERATING WELL W/ PROPOFOL AT 5MCGS. PT IS MOVING, RESPONDS TO PAIN BUT NOT FOLLOWING COMMANDS AT THIS TIME. PT IS ST ON THE ELECTRICAL INSTRUMENT TECHNICIAN, BP WNL. OXYGEN SAT 95%. HEPARIN GTT AT 25UNITS. PT HAS HAD NO ACUTE CHANGES/DISTRESS OVERNIGHT.
--- NOTE | 2023-03-05 08:47 | NUR ---
ASSUMED CARE REPORT FROM ENMA DELGADO AT 0700. PT INTUBATED AND SEDATED. VENT SETTINGS SPONT 10/8/30%, TV 650-700ML. RR HIGH 20'S. LUNGS CLEAR. MODERATE AMOUNT OF THICK YELLOW SECRETIONS FROM ETT. COUGH/GAG REFLEX PRESENT. PROPOFOL PLACED ON STANDBY. PT GRIMACES c CARE, DOES NOT FOLLOW DIRECTIONS, DOES NOT WITHDRAW EXT TO PAIN. OGT IN PLACE, INCREASED TUBE FEEDS TO GOAL. ABD ROUND, SOFT, NON TENDER. HYPOACTIVE BT. LIQUID BROWN STOOLS. SCOTT PATENT, DRAINING CLEAR YELLOW URINE TO GRAVITY. CVC TO RIJ, DRESSING C/D/I. WILL CONTINUE TO MONITOR.
--- NOTE | 2023-03-05 10:30 | NUR ---
EXTUBATION PT REMAINED ON SPONT 04/28/30%, TV 700'S. STRONG COUGH/GAG/SWALLOW REFLEX. NOT ABLE TO FOLLOW COMMANDS. SEDATION ON STANDBY SINCE THIS AM. DISCUSSED c DR PEREZ AND RT. EXTUBATED PT AT 0945. PLACED ON 4L VIA NC. RESTRAINTS REMOVED. PT PROTECTING AIRWAY. CONTINUES TO HAVE STRONG COUGH/GAG/SWALLOW REFLEX. FAMILY UPDATED.
--- NOTE | 2023-03-05 18:05 | NUR ---
SHIFT SUMMARY PT EXTUBATED THIS SHIFT, SEE PREVIOUS NOTE. TOLERATING WELL. AIRWAY PATENT, STRONG COUGH/GAG, SOFT VOICE. 2L VIA NC, O2 SATS >95%. OCCASIONAL EXP WHEEZE. DIM IN BASES. PT FOLLOWS SIMPLE COMMANDS. ORIENTED TO SELF. SLOW TO RESPOND. KNOWS BIRTHDAY. AGITATED c TURNS. PT REMAINED IN SR ENTIRE SHIFT, HEPARIN GTT D/C'D. RATE 90'S. BP STABLE. TUBE FEEDS STOPPED ON EXTUBATION. PT NOT READY FOR BEDSIDE SWALLOW AT THIS TIME. MULTIPLE LIQUID BROWN STOOLS, RECTAL TUBE PLACED, 400 ML OUT. SCOTT PATENT, DRAINING CLEAR YELLOW URINE TO GRAVITY, LEFT IN PLACE D/T COCCXY ULCER. WILL CONTINUE TO MONITOR UNTIL REPORT TO ONCOMING NURSE.
[2023-03-05 21:14] LABS: Vancomycin, Trough 16.1 ug/mL (5.0-10.0)
--- NOTE | 2023-03-05 23:50 | NUR ---
ASSUMED CARE PATIENT IN BED ALERT TO SELF. NO FAMILY AT BEDSIDE. VS STABLE. ON 4L NC. SCOTT CATH AND FMS TO GRAVITY.
[2023-03-06] VITALS (22 sets, daily range): BP systolic 111–169; BP diastolic 66–108
[2023-03-06 04:07] LABS: Hematocrit 29.9 % (37.0-53.0); Hemoglobin 10.2 g/dL (13.5-17.5); Mean Corpuscular HGB 29.3 pg (26.0-34.0); Mean Corpuscular HGB Conc 34.1 g/dL (31.5-36.5); Mean Corpuscular Volume 86 fL (80-100); Mean Platelet Volume 10.6 fL (9.1-12.4); Platelet Count 197 K/mm3 (150-400); RDW Coefficient Variation 14.9 % (11.7-14.2); RDW Standard Deviation 46.5 fL (35.1-46.3); Red Blood Cell Count 3.48 M/mm3 (4.30-5.90); White Blood Cell Count 17.94 K/mm3 (4.00-11.30)
[2023-03-06 04:26] LABS: Magnesium, Blood 2.4 mg/dL (1.6-2.4)
[2023-03-06 04:30] LABS: BAND PERCENT MAN 7 % (0-8); BASOPHILS PERCENT MAN 0 % (0-2); EOSINOPHILS PERCENT MAN 0 % (0-6); LYMPHOCYTES ABSOLUTE MAN 0.71 K/mm3 (0.84-5.20); LYMPHOCYTES PERCENT MAN 4 % (21-46); MONOCYTES ABSOLUTE MAN 0.53 K/mm3 (0.16-1.47); MONOCYTES PERCENT MAN 3 % (4-13); MYELOCYTE ABSOLUTE MAN 0.17 K/mm3 (0.00-0.00); MYELOCYTE PERCENT MAN 1 % (0-0); SEG NEUTROPHILS PERCENT MAN 85 % (41-73); TOTAL CELLS COUNTED 100
[2023-03-06 04:33] LABS: Albumin, Blood 1.7 g/dL (3.4-5.0); Anion Gap 7 mmol/L (6-16); Blood Urea Nitrogen 52 mg/dL (8-24); Bun/Creatinine Ratio 54.6 (12.0-20.0); CO2, Blood 29 mmol/L (21-32); Calcium, Blood 8.8 mg/dL (8.5-10.1); Chloride, Blood 106 mmol/L (98-108); Creatinine, Blood 0.95 mg/dL (0.60-1.20); Glomerular Filtration Rate 90 (60-); Glucose, Blood 132 mg/dL (70-99); Phosphorus, Blood 3.1 mg/dL (2.5-4.9); Potassium, Blood 3.7 mmol/L (3.5-5.5); Sodium, Blood 142 mmol/L (136-145)
--- NOTE | 2023-03-06 06:15 | NUR ---
SHIFT SUMMARY PATIENT REMAINS CONFUSED AND UNINTELLIGIBLE IN SPEECH. PATIENT IS VERY WEAK AND RIGID. COMPLAINTS OF PAIN WITH ANY TURN/MOVEMENT. SCOTT REMAINS IN PLACE TO GRAVITY. RECTAL TUBE IN PLACE TO GRAVITY.
--- NOTE | 2023-03-06 08:06 | NUR ---
ASSUMED CARE OF YOGESH AT 0700. PT IS ABLE TO OPEN EYES AND ANSWER, ALTHOUGH HIS WORDS ARE VERY GARBLED AND DIFFICULT TO UNDERSTAND. HE DID SAY IT WAS JANUARY 1998. HIS LUNGS ARE COURSE T/O AND AUDIBLY WHEEZING. BREATHING TREATMENT WAS GIVEN BY RT. PT CONTINUES TO COUGH, ABLE TO USE YANKAUER FOR SECRETIONS WHEN ENCOURAGED AND ASSISTED. ORAL CARE COMPLETED. HE WAS ABLE TO FOLLOW COMMANDS IN REGARDS TO OPENING HIS MOUTH AND ALLOWING THE CLEANING. SCOTT TO GRAVITY DRAINAGE, YELLOW RETURN, RECTAL TUBE IN PLACE FOR VERY LIQUID YELLOW STOOL. HE DOES COMPLAIN OF PAIN WITH ANY TOUCH OR MOVEMENT. WHEN ASKED ABOUT HIS PAIN HE CAN'T SAY ONE LOCATION. ASKED FOR SPEECH EVAL FOR HIS ABILITY TO SWALLOW, ROUNDED WELL.
--- NOTE | 2023-03-06 09:10 | NUR ---
PT TURNED AND REPOSITIONED, CRYING OUT IN PAIN WITH ANY ADJUSTMENTS. SACRAL WOUND IS BLACK RIMMED AND FRAGILE APPEARING, PINK AREAS. FOAM PAD IN PLACE.
--- NOTE | 2023-03-06 12:14 | NUR ---
SPOKE WITH , WILL NOT ESCALATE CARE ie DOBBHOFF FEEDING TUBE, PRESSORS, ETC. HE HAS SPOKEN WITH FAMILY AND CURRENT PLAN IS CONTINUED WITH NO ESCALATION PLANNED. CENTRAL LINE REMOVED, PT DID WELL, FOLLOWED DIRECTIONS AND TOLERATED PRESSURE BEING HELD. PERIPHERAL IV IN LEFT AC REMOVED WELL. BLOOD CULTURES DRAWN PER . FAMILY HAS JUST ARRIVED.
[2023-03-06 17:25] LABS: Base Excess Venous 7.3 mmol/L; Bicarbonate Venous 30.5 mmol/L (24.0-30.0); PCO2 Venous 41.8 mmHg (38-42); pH Blood Venous 7.48 (7.34-7.37)
--- NOTE | 2023-03-06 17:42 | NUR ---
DR MOLINA CALLED TO GIVE UPDATE BY MY CLINICAL TRIAL LEADER AT 1700, ORDER RECEIVED FOR VENOUS BLOOD GAS. DRAWN, SENT AND RAN. YOGESH SEEMS MORE OUT OF SORTS THIS AFTERNOON THAN EARLIER TODAY. HE SEEMS LESS REDIRECTABLE AND MORE UNAWARE. HE HAS HAD A COUPLE OF DOSES OF FENTANYL TODAY. HE CONTINUES TO BE COOPERATIVE, JUST UNABLE TO REORIENT HIM TO CURRENT EVENTS. HE SEEMS MORE RESTLESS THIS AFTERNOON WELL. BECOMING MORE DIFFICULT TO UNDERSTAND WITH HIS MUMBLING.
[2023-03-06 20:19] LABS: Vancomycin, Trough 14.5 ug/mL (5.0-10.0)
[2023-03-07] VITALS (14 sets, daily range): BP systolic 135–164; BP diastolic 86–100
--- NOTE | 2023-03-07 00:09 | NUR ---
SPOKE TO DR JONES REGARDING PT WORSENING RESPIRATORY STATUS. PT WAS COURSE/DIMINISHED AT SHIFT BEGINNING AND NOW HAS RALES BILATERALLY W/TACHYPNEA RATE IN THE 30S. BIPAP WAS ORDERED. RT NOTIFIED. ALSO UPDATED THAT PT HAS SPIKED A TEMP. OXYGEN SAT ADEQUATE AT THIS TIME AT 96% BUT NOTABLE INCREASE IN WORK OF BREATHING. PT IS ALSO HALLUCINATING, TALKING TO AND SEEING PEOPLE WHO ARE NOT IN THE ROOM. HE IS ST ON THE DISTRICT WIRE CHIEF W/RATE IN THE 110S. COUGH PRESENT W/PT ONLY ABLE TO PRODUCE SPUTUM ON OCCASION DUE TO WEAKNESS.
[2023-03-07 03:37] LABS: BASOPHILS ABSOLUTE AUTO 0.13 K/mm3 (0.00-0.23); BASOPHILS PERCENT AUTO 1 % (0-2); EOSINOPHILS PERCENT AUTO 0 % (0-6); Hematocrit 33.6 % (37.0-53.0); IMMATURE GRAN ABSOLUTE AUTO 0.79 K/mm3 (0.00-0.10); IMMATURE GRAN PERCENT AUTO 5 % (0-1); LYMPHOCYTES ABSOLUTE AUTO 0.58 K/mm3 (0.84-5.20); LYMPHOCYTES PERCENT AUTO 3 % (21-46); MONOCYTES ABSOLUTE AUTO 0.65 K/mm3 (0.16-1.47); MONOCYTES PERCENT AUTO 4 % (4-13); Mean Corpuscular HGB 28.6 pg (26.0-34.0); Mean Corpuscular HGB Conc 32.7 g/dL (31.5-36.5); Mean Corpuscular Volume 88 fL (80-100); Mean Platelet Volume 10.2 fL (9.1-12.4); NEUTROPHILS ABSOLUTE AUTO 14.71 K/mm3 (1.96-9.15); NEUTROPHILS PERCENT AUTO 87 % (41-73); Platelet Count 218 K/mm3 (150-400); RDW Coefficient Variation 15.2 % (11.7-14.2); RDW Standard Deviation 48.5 fL (35.1-46.3); Red Blood Cell Count 3.84 M/mm3 (4.30-5.90); White Blood Cell Count 16.86 K/mm3 (4.00-11.30)
[2023-03-07 03:53] LABS: Albumin, Blood 1.8 g/dL (3.4-5.0); Anion Gap 7 mmol/L (6-16); Blood Urea Nitrogen 38 mg/dL (8-24); CO2, Blood 28 mmol/L (21-32); Calcium, Blood 8.9 mg/dL (8.5-10.1); Chloride, Blood 112 mmol/L (98-108); Creatinine, Blood 0.86 mg/dL (0.60-1.20); Glomerular Filtration Rate 97 (60-); Glucose, Blood 164 mg/dL (70-99); Potassium, Blood 4.1 mmol/L (3.5-5.5); Sodium, Blood 147 mmol/L (136-145)
--- NOTE | 2023-03-07 06:30 | NUR ---
SHIFT SUMMERY PT HAD TO BE PLACED ON BIPAP LAST NIGHT DUE TO RESP DISTRESS. HE IS NOW DOING WELL ON BIPAP W/OXYGEN SAT 98%. BP WNL, ST ON REAL ESTATE FIRM MANAGER. DR MOLINA HAS BEEN AT BEDSIDE EARLIER AND IS AWARE OF PT DECLINE OVERNIGHT. TEMP MAX OF 101.1. CONFUSED.
--- NOTE | 2023-03-07 07:26 | NUR ---
CARE ASSUMPTION DURING BEDSIDE SHIFT REPORT WITH ENMA DELGADO THE PT IS LYING IN BED WEARING THE BIPAP MASK. THE PT AWAKENS TO THE SOUND OF OUR VOICES AND ENGAGES IN CONVERSATION. HE PT IS CONFUSED AND NOT MAKING ALOT OF SENSE EVEN REQUESTING AT THIS TIME THAT THIS RN GO GET HIM A BEER. BIPAP SETTINGS 10/5 W 30% FIO2. PT APPEARING VERY WEAK BUT MOVING EXTREMITIES IN BED. PT HAS TEMP SCOTT CATHETER THAT IS PATENT AND DRAINING URINE. PT NOT IN ANY DISTRESS AT THIS TIME. MONITOR SHOWING SR/ST 90'S LOW 100'S.
--- NOTE | 2023-03-07 08:00 | NUR ---
UPDATE PT VERY CONFUSED, PULLING HIS IV OUT. SITE WRAPEED, CLEANED AND IV REPLACED.
--- NOTE | 2023-03-07 11:00 | NUR ---
UPDATE PT PULLED SCOTT CATHETER AND RECTAL TUBE OUT. NOT REPLCED AT THIS TIME. ATTENDS IN PLACE.
--- NOTE | 2023-03-07 13:30 | NUR ---
in to see pt . Dr mills called pt to transition to comfort care.
--- NOTE | 2023-03-07 13:55 | NUR ---
Spiritual Care Visit. Pt. is made comfort care. Pt. is awake in bed but occasionally somnolent. Pts. NOK (Ex-) is present but leaving to return to her workplace. NOK verbalizes that Pt. would benefit from a spiritual care visit. Pt. verbalizes an interest in having a explosive ordnance specialist come and visit. In the mean time I pray for the Pt. A call was made to Father Jose, and a message was left on his voicemail.
--- NOTE | 2023-03-07 17:48 | NUR ---
DAYSHIFT SUMMARY PT REMAINED VERY CONFUSED THIS SHIFT ONLY ALERT TO SELF. PT TAKEN OFF BIPAP THIS AM AND HAS BEEN ON RM AIR FOR MOST OF THE DAY. PT TRANSITIONED TO COMFORT CARE THIS AFTERNOON AFTER DR. MOLINA AND NADEEN FROM PALLIATIVE CARE MET WITH FAMILY. PT PULLED HIS CATHETER AND HIS RECTAL TUBE THIS SHIFT SO THEY WERE LEFT OUT FOR THE REST OF THE SHIFT. PT PASSING URINE INTO HIS ATTENDS, NO BM'S THIS SHIFT. PT HAS BEEN GIVEN PAIN MEDICATION PER EMAR SEVERAL TIMES THIS SHIFT HE HAS BEEN VERY PAINFUL ESPECIALLY W BEING MOVED IN BED. CURRENTLY THE PT IS LYING IN BED AWAKE W HIS FAMILY AT BEDSIDE. WILL REPORT TO ONCOMING RN.
--- NOTE | 2023-03-08 05:26 | NUR ---
SUMMARY: PATIENT TRANSFERRED FROM ICU ON COMFORT CARE. PATIENT REPSONDS TO VERBAL STIMULI AND HIS NAME. PATIENT VOIDING FREQUENTLY. PLACED CONDOM CATH PATIENT PULLED SCOTT YESTERDAY. PATIENT WAS CHOKING AND FREQUENTLY COUGHING AFTER ORAL ROXINAL. ADMINISTERED IV MORPHINE FOR PAIN AND PATIENT TOERATED MUCH BETTER. PATIENT NPO AT THIS TIME. RESTING IN BED COMFORTABLY. SCLOPAMINE PATCH PLACED FOR SECRETIONS AND THAT DID SEEM TO IMPROVE THROUGHOUT THE NIGHT.
--- NOTE | 2023-03-08 07:59 | NUR ---
PT REPOSITIONED TO LEFT SIDE LYING, IN BED CALL LIGHT IN REACH. PT HAS A PRESSURE SORE ON COCCYX, MEPILEX REPLACED. CONDOM CATH IN PLACE PATENT AND DRAINING. PT RESP RATE SEEMS ELEVATED POSSIBLE AIR HUNGER. WILL MEDICATE WITH ROXINOL PER EMAR.
--- NOTE | 2023-03-08 11:15 | NUR ---
TOD 1109- PT REPOSITIONED FROM LEFT SIDE LYING TO FLOATED BACK AT 1000 FAMILY ARRIVED. PT BREATHING PATTERN CHANGED HE BEGAN HAVING PAUSES OF UP TO 45 SECONDS IN BREATHING AND SEEMED TO BE EXPERIENCING AIR HUNGER. MEDICATED WITH ROXINOL AND ATROPINE DROPS FOR THE SECRETIONS. PT DAUGHTERS AND EX- PRESENT IN THE ROOM. ALL FAMILY STAYED WITH THE PT UNTIL HIS PASSING AT 1109. PALLIATIVE CARE SANDY MEJÍA NOTIFIED AT 1110 LEAD MANUFACTURING ENGINEERING TECH ANITA NOTIFIED AT 1111 DR MOLINA NOTIFIED AT 1112 AND NURSING ENTRY TABLE OPERATOR NOTIFIED AT 1113. FAMILY LEFT AFTER THE PT PASSING. [place] DIRECTORS TO BE CALLED NEXT.
--- NOTE | 2023-03-08 12:15 | NUR ---
Pt passed this morning at 1109. Daughters were at bedside. They requested a lock of hair, and we assisted with this, placing it into small glass vials made for either rhythm strip or lock of hair. They expressed gratefulness, and said their goodbyes before leaving. Plan to follow up with them, give information on Grief Support Group. They left quickly, was unable to follow up in person.
--- NOTE | 2023-03-08 14:38 | NUR ---
FINAL DISCHARGE- [facility] ROSALIA SINGER, AT 1440.
== END 2023-03-08 11:09 | DRG 871 ==
LOC: ER 13:47 → ICUE 13:48 → PCU 13:48 → ICUE 13:48 → PCU 17:30 → ICUE 18:15 → MEDS 03-07 20:59
PROVIDERS: Emergency Medicine; Family Medicine; Internal Medicine; Internal Medicine Critical Care Medicine; Pharmacist; Student in an Organized Health Care Education/Training Program; ADMIT Hospitalist
PROC: 5A09457 Assistance with Respiratory Ventilation, 24-96 Consecutive Hours, Continuous Positive Airway Pressure (ICD-10-PCS; 2023-03-02)
PROC: 3E033XZ Introduction of Vasopressor into Peripheral Vein, Percutaneous Approach (ICD-10-PCS; 2023-03-02)
PROC: 3E03329 Introduction of Other Anti-infective into Peripheral Vein, Percutaneous Approach (ICD-10-PCS; 2023-03-02)
PROC: 4A133R1 Monitoring of Arterial Saturation, Peripheral, Percutaneous Approach (ICD-10-PCS; 2023-03-02)
PROC: 5A1945Z Respiratory Ventilation, 24-96 Consecutive Hours (ICD-10-PCS; principal; 2023-03-03)
PROC: 0BH17EZ Insertion of Endotracheal Airway into Trachea, Via Natural or Artificial Opening (ICD-10-PCS; 2023-03-03)
PROC: 02HV33Z Insertion of Infusion Device into Superior Vena Cava, Percutaneous Approach (ICD-10-PCS; 2023-03-03)
PROC: 0DH67UZ Insertion of Feeding Device into Stomach, Via Natural or Artificial Opening (ICD-10-PCS; 2023-03-03)
PROC: B548ZZA Ultrasonography of Superior Vena Cava, Guidance (ICD-10-PCS; 2023-03-03)
PROC: 05H333Z Insertion of Infusion Device into Right Innominate Vein, Percutaneous Approach (ICD-10-PCS; 2023-03-04)
DX: A41.02 Sepsis due to Methicillin resistant Staphylococcus aureus (principal); G92.8 Other toxic encephalopathy; J15.212 Pneumonia due to Methicillin resistant Staphylococcus aureus; L89.153 Pressure ulcer of sacral region, stage 3; J96.01 Acute respiratory failure with hypoxia; R65.21 Severe sepsis with septic shock; N17.9 Acute kidney failure, unspecified; N39.0 Urinary tract infection, site not specified; J44.0 Chronic obstructive pulmonary disease with (acute) lower respiratory infection; E87.1 Hypo-osmolality and hyponatremia; E87.4 Mixed disorder of acid-base balance; Z66 Do not resuscitate; Z51.5 Encounter for palliative care; D69.6 Thrombocytopenia, unspecified; I48.91 Unspecified atrial fibrillation; K70.30 Alcoholic cirrhosis of liver without ascites; I11.0 Hypertensive heart disease with heart failure; R74.01 Elevation of levels of liver transaminase levels; I50.9 Heart failure, unspecified; E86.1 Hypovolemia; Z20.822 Contact with and (suspected) exposure to COVID-19; F10.10 Alcohol abuse, uncomplicated; J98.01 Acute bronchospasm; F31.9 Bipolar disorder, unspecified; F43.10 Post-traumatic stress disorder, unspecified; F03.90 Unspecified dementia, unspecified severity, without behavioral disturbance, psychotic disturbance, mood disturbance, and anxiety; Z98.890 Other specified postprocedural states; Z87.820 Personal history of traumatic brain injury; Z86.79 Personal history of other diseases of the circulatory system; Z79.899 Other long term (current) drug therapy; Z79.2 Long term (current) use of antibiotics; Z87.891 Personal history of nicotine dependence; Z78.1 Physical restraint status
CPT/HCPCS: 0241U; 31500; 31720; 36415; 36556; 36600; 51702; 71045; 72192; 76700; 80048; 80053; 80069; 80202; 81001; 82140; 82330; 82803; 82947; 83605; 83735; 83880; 84100; 84145; 84484; 85025; 85610; 85730; 87040; 87070; 87077; 87086; 87147; 87186; 87205; 92526; 92610; 93005; 93010; 93308; 93321; 94002; 94003; 94640; 94660; 94664; 94760; 94762; 96365; 96375; 99285-25; A9270; C1751; C9113; J0282; J0456; J0696; J1644; J1650; J1720; J1940; J2060; J2270; J2704; J2920; J3010; J3370; J3475; J7030; J7050; J7060; J7070